=== PATIENT | female | born 1990 | race Caucasian/White ===

== ENCOUNTER 2016-07-13 16:52 | Emergency (ER) | payer SELFPAY ==
[~2016-07-13] VITALS: Ht 170.2 cm; Wt 72.0 kg
[~2016-07-13 16:52] MED LIST: CEFT250T8 PO
[2016-07-13 18:39] VITALS: BP 121/66; PULSE 86; RESP 18; TEMP 98.1; O2SAT 98
[2016-07-13 18:54] VITALS: RESP 18; O2SAT 98
[2016-07-13 18:58] VITALS: BP_SYST 121; BP_SYST 130; BP_DIAS 66; BP_DIAS 71; PULSE 82; RESP 17; O2SAT 99
--- NOTE | 2016-07-13 18:58 | PD ---
HPI Chief Complaint: Chest Pain Time Seen by Provider: 18:42 Travel History International Travel<30 days: No Contact w/Intl Traveler<30days: No Traveled to known affect area: No History of Present Illness HPI This a 25-year-old female with a history of IVD drug abuse, who presents here under custody with complaints of chest pain and general malaise. Patient also reports she's had a temperature of 104 at home. The patient states that she's had general malaise for over a year however last couple months she's felt worse. She denies any chills. She states that she last shot up yesterday in her neck. She states she sat up with opiates and methamphetamine. When asked about her chest pain, the patient states that its worse with inspiration and expiration. She states that she feels as though she has congestive heart failure. I asked her why she thought she had congestive heart failure and she could not give a true answer to validate. She denies being . There are no other complaints time of my examination. PFSH Past Medical History Arthritis: No Asthma: Yes Autoimmune Disease: No Blood Disorders: No Bipolar Disorder: Yes Depression: Yes Heart Rhythm Problems: Yes Cancer: No Cardiovascular Problems: Yes (ENDOCARDITIS) High Cholesterol: No Chemotherapy: No Chest Pain: Yes Congestive Heart Failure: No COPD: No Cerebrovascular Accident: Yes Diabetes: No Diminished Hearing: No Endocrine: No Gastrointestinal Disorders: Yes GERD: No Genitourinary: No Headaches: Yes Hepatitis: No Hiatal Hernia: No Hypertension: No Immune Disorder: No Kidney Stones: No Musculoskeletal: No Neurologic: No Psychiatric: Yes Reproductive: No Respiratory: Yes Immunizations Current: No Migraines: Yes Myocardial Infarction: No Radiation Therapy: No Renal Failure: No Seizures: No Sickle Cell Disease: No Sleep Apnea: No Thyroid Disease: No Ulcer: No Tetanus Vaccination: > 5 Years Influenza Vaccination: No ?: Not LMP: 07/10/16 : 2 Para: 2 Miscarriage: 0 : 0 Past Surgical History Abdominal Surgery: Yes (appendectomy) AICD: No Appendectomy: Yes Arteriovenous Shunt: No Cardiac Surgery: No Section: Yes Cholecystectomy: No Ear Surgery: No Endocrine Surgery: No Eye Surgery: No Genitourinary Surgery: No Gynecologic Surgery: No Hysterectomy: Yes Insulin Pump: No Joint Replacement: No Oral Surgery: No Pacemaker: No Thoracic Surgery: No Other Surgery: Yes Social History Alcohol Use: Yes (OCASSIONALLY) Tobacco Use: Yes (1/2 ppd) Substance Use: Yes (meth and dilaudid IV) Allergies-Medications (Allergen,Severity, Reaction): Coded Allergies: No Known Allergies (Verified , 07/13/16) Reported Meds & Prescriptions Reported Meds & Active Scripts Active No Active Prescriptions or Reported Medications Review of Systems Except as stated in HPI: all other systems reviewed are Neg General / Constitutional: Positive: Fever HENT: No: Headaches, Lightheadedness, Neck Stiffness, Neck Pain Cardiovascular: Positive: Chest Pain or Discomfort (neuritic), No: Palpitations, Irregular Rhythm Respiratory: Positive: Cough (productive with with brown-yellow phlegm.), Shortness of Breath, No: Wheezing Gastrointestinal: No: Nausea, Vomiting, Abdominal Pain Musculoskeletal: Positive: Myalgias (generalized body aches), Pain (denies joint pain), No: Weakness Neurologic: No: Weakness (Gen.), Headache, Change in Mentation, Sensory Disturbance Physical Exam Narrative GENERAL: Well-developed well-nourished female in no acute respiratory distress. SKIN: Warm and dry. HEAD: Atraumatic. Normocephalic. EYES: No scleral icterus. No injection or drainage. ENT: Mucous membranes pink and moist. NECK: Trachea midline. No JVD. Supple CARDIOVASCULAR: Regular rate and rhythm. No murmur appreciated. RESPIRATORY: No accessory muscle use. Clear to auscultation. Breath sounds equal bilaterally. GASTROINTESTINAL: Abdomen soft, non-tender, nondistended. MUSCULOSKELETAL: No obvious deformities. No clubbing. No cyanosis. No edema. NEUROLOGICAL: Awake and alert. No obvious cranial nerve deficits. Motor grossly within normal limits. Normal speech. PSYCHIATRIC: Appropriate mood and affect; insight and judgment normal. Data Data Last Documented VS Vital Signs Date Time Temp Pulse Resp B/P Pulse Ox O2 Delivery O2 Flow Rate FiO2 07/13/16 18:58 82 17 121/66 99 Room Air 130/71 07/13/16 18:39 98.1 Orders Electrocardiogram (07/13/16 ) Basic Metabolic Panel (Bmp) (07/13/16 18:49) Ckmb (Isoenzyme) Profile (07/13/16 18:49) Complete Blood Count With Diff (07/13/16 18:49) Magnesium (Mg) (07/13/16 18:49) Prothrombin Time / Inr (Pt) (07/13/16 18:49) Act Partial Throm Time (Ptt) (07/13/16 18:49) Troponin I (07/13/16 18:49) Ecg Monitoring (07/13/16 18:49) Bilateral Bp Monitoring (07/13/16 18:49) Iv Access Insert/Monitor (07/13/16 18:49) Oximetry (07/13/16 18:49) Oxygen Administration (07/13/16 18:49) Sodium Chloride 0.9% Flush (Ns Flush) (07/13/16 19:00) Chest, Pa & Lat (07/13/16 18:49) Blood Culture (07/13/16 18:49) Ed Urine Pregnancytest Poc (07/13/16 18:49) Westergren Sedimentation Rate (07/13/16 18:51) MDM Medical Decision Making Medical Screen Exam Complete: Yes Emergency Medical Condition: Yes Differential Diagnosis Atypical noncardiac chest pain versus pleurisy versus pneumonia versus ACS versus endocarditis Narrative Course 25 year old female with history of IVD drug abuse, presents today in custody with complaints of chest pain. The patient also reported subjective fever. Patient is afebrile here. I'll signs are all within normal limits. EKG shows sinus rhythm with a rate of [address] elevations or depressions. Cardiac workup has been ordered including blood cultures and sedimentation rate. She'll be signed out to Dr. Carolina Ann, physician replacing a and disposition will be per her. Diagnosis Primary Impression: Chest pain Additional Impression: Drug abuse Scripts No Active Prescriptions or Reported Meds Ivan Rasmussen MD Jul 13, 2016 18:58
[2016-07-13 19:00] VITALS: BP 122/65; PULSE 79; RESP 16; O2SAT 98
[2016-07-13] MEDS ORDERED: SODIUM CHLORIDE 0.9% FLUSH 10 ML FLUSH IVF PRN (19:00)
[2016-07-13 19:24] LABS: AUTOMATED NEUTROPHIL # 3.7 TH/MM3 (1.8-7.7); BASOPHIL % 0.4 % (0.0-2.0); EOSINOPHIL # 0.1 TH/MM3 (0-0.4); HEMATOCRIT 35.2 % (35.0-46.0); HEMO FLAGS DIFF FINAL; LYMPH % 26.8 % (9.0-44.0); LYMPHOCYTE # 1.7 TH/MM3 (1.0-4.8); MEAN CELL VOLUME 82.8 FL (80.0-100.0); MEAN CORPUSCULAR HGB CONC 33.8 % (32.0-36.0); MONO % 10.5 % (0.0-8.0); NEUT % 60.3 % (16.0-70.0); PLATELET COUNT 268 TH/MM3 (150-450); RED BLOOD COUNT 4.25 MIL/MM3 (4.00-5.30); RED CELL DISTRIBUTION WIDTH 15.1 % (11.6-17.2); WHITE BLOOD COUNT 6.2 TH/MM3 (4.0-11.0)
[2016-07-13 19:37] LABS: ANION GAP 7 MEQ/L (5-15); BICARBONATE 27.4 MEQ/L (21.0-32.0); BLOOD UREA NITROGEN 6 MG/DL (7-18); CHLORIDE 105 MEQ/L (98-107); GLOMERULAR FILTRATION RATE 90 ML/MIN (>89); MAGNESIUM 2.3 MG/DL (1.5-2.5); POTASSIUM 3.4 MEQ/L (3.5-5.1); SODIUM (NA) 139 MEQ/L (136-145)
[2016-07-13 19:43] LABS: CREATINE KINASE 30 U/L (26-192)
--- NOTE | 2016-07-13 20:28 | RADRPT ---
EXAM DATE/TIME: 07/13/2016 19:08 [facility] COMPARISON: CHEST SINGLE AP, April 03, 2016, 9:25. INDICATIONS : Chest pain. MEDICAL HISTORY : leukocytosis SURGICAL HISTORY : None. ENCOUNTER: Initial ACUITY: 1 day PAIN SCORE: 4/10 LOCATION: Bilateral chest FINDINGS: The lungs are clear without infiltrate, nodule, or mass. There is no appreciable pleural effusion fo r technique. Heart and mediastinum are unremarkable. CONCLUSION: No acute cardiopulmonary disease. Bryan Kennedy MD on July 13, 2016 at 20:25 Board Certified Radiologist. This report was verified electronically.
--- NOTE | 2016-07-13 20:59 | PD ---
Physical Exam Narrative General: The patient is a well-developed well-nourished female in no acute distress. She refuses to talk to me. Head and Neck exam: Head is normocephalic atraumatic. Eyes: Pupils are equal round and reactive to light. Nose: Midline septum with pink mucous membranes Mouth: The patient refuses to open her mouth for examination. Neck: No palpable lymphadenopathy. No nuchal rigidity. No thyromegaly. Cardiovascular: Regular rate and rhythm without murmurs, gallops, or rubs. No pulse deficit to the extremities on simultaneous auscultation and palpation of her radial artery. Lungs: Clear to auscultation bilaterally. No wheezes, rhonchi, or rales. Abdomen: Soft, without tenderness to palpation in all 4 quadrants of the abdomen. No guarding, rebound, or rigidity. Normal bowel sounds are audible. No tenderness on palpation of McBurney's point. Extremities: No clubbing, cyanosis, or edema. 2+ pulses in all 4 extremities. No calf tenderness on palpation. Back: No spinous process tenderness to palpation. No costovertebral angle tenderness to palpation. Neurologic Exam: The patient refuses to cooperate for formal neurologic testing, however the patient has no evidence of facial asymmetry. The patient has strength that is 5 over 5 in all 4 extremities and is moving all extremities equally. The patient has intact sensation of her extremities. Skin Exam: No rash noted. Intact skin that is warm and dry. Data Data Last Documented VS Vital Signs Date Time Temp Pulse Resp B/P Pulse Ox O2 Delivery O2 Flow Rate FiO2 07/13/16 19:00 79 16 122/65 98 Room Air 07/13/16 18:39 98.1 Orders Electrocardiogram (07/13/16 ) Basic Metabolic Panel (Bmp) (07/13/16 18:49) Ckmb (Isoenzyme) Profile (07/13/16 18:49) Complete Blood Count With Diff (07/13/16 18:49) Magnesium (Mg) (07/13/16 18:49) Prothrombin Time / Inr (Pt) (07/13/16 18:49) Act Partial Throm Time (Ptt) (07/13/16 18:49) Troponin I (07/13/16 18:49) Ecg Monitoring (07/13/16 18:49) Bilateral Bp Monitoring (07/13/16 18:49) Iv Access Insert/Monitor (07/13/16 18:49) Oximetry (07/13/16 18:49) Oxygen Administration (07/13/16 18:49) Sodium Chloride 0.9% Flush (Ns Flush) (07/13/16 19:00) Chest, Pa & Lat (07/13/16 18:49) Blood Culture (07/13/16 18:49) Ed Urine Pregnancytest Poc (07/13/16 18:49) Westergren Sedimentation Rate (07/13/16 18:51) Labs Laboratory Tests Test 07/13/16 18:50 White Blood Count 6.2 TH/MM3 Red Blood Count 4.25 MIL/MM3 Hemoglobin 11.9 GM/DL Hematocrit 35.2 % Mean Corpuscular Volume 82.8 FL Mean Corpuscular Hemoglobin 28.0 PG Mean Corpuscular Hemoglobin 33.8 % Concent Red Cell Distribution Width 15.1 % Platelet Count 268 TH/MM3 Mean Platelet Volume 7.7 FL Neutrophils (%) (Auto) 60.3 % Lymphocytes (%) (Auto) 26.8 % Monocytes (%) (Auto) 10.5 % Eosinophils (%) (Auto) 2.0 % Basophils (%) (Auto) 0.4 % Neutrophils # (Auto) 3.7 TH/MM3 Lymphocytes # (Auto) 1.7 TH/MM3 Monocytes # (Auto) 0.6 TH/MM3 Eosinophils # (Auto) 0.1 TH/MM3 Basophils # (Auto) 0.0 TH/MM3 CBC Comment DIFF FINAL Differential Comment Erythrocyte Sedimentation Rate 42 mm/hr Prothrombin Time 11.0 SEC Prothromb Time International 1.0 RATIO Ratio Activated Partial 31.0 SEC Thromboplast Time Sodium Level 139 MEQ/L Potassium Level 3.4 MEQ/L Chloride Level 105 MEQ/L Carbon Dioxide Level 27.4 MEQ/L Anion Gap 7 MEQ/L Blood Urea Nitrogen 6 MG/DL Creatinine 0.78 MG/DL Estimat Glomerular Filtration 90 ML/MIN Rate Random Glucose 88 MG/DL Calcium Level 8.6 MG/DL Magnesium Level 2.3 MG/DL Total Creatine Kinase 30 U/L Troponin I LESS THAN 0.02 NG/ML [facility] Medical Record Reviewed: Yes Supervised Visit with KIM: No Interpretation(s) Last Impressions Chest X-Ray 07/13/16 4786 Signed Impressions: Service Date/Time: Wednesday, July 13, 2016 19:08 - CONCLUSION: No acute cardiopulmonary disease. Bryan Kennedy MD Narrative Course During the course of the patients emergency department visit, the patients history, examination, and differential diagnosis were reviewed with the patient. The patient had IV access obtained and blood work sent for analysis. The patient was checked out to me by Dr. Rasmussen requested that I review the patient's laboratory studies and disposition the patient. The patient was brought in by the police after being placed under arrest. The patient reported to him that she's been having 2 months of intermittent chest pain. She does have a history of IV drug use. The patient on arrival is afebrile with normal vital signs. The patients laboratory studies were reviewed and remarkable for a white count of 6.2, hemoglobin 11.9, platelets 268 with 10.5 monocytes. Sedimentation rate is slightly elevated at 42. [facility] medical record reveals that the patient in March had a slightly elevated sedimentation rate and complaints of chest pain at that time. She was admitted to the hospital, however she unfortunately signed out AGAINST MEDICAL ADVICE. Blood cultures were done at that time and found to be negative 2. Blood cultures 2 have been drawn at this time. Basic metabolic profile is remarkable for potassium of 3.4, BUN 6, CPK 30, troponin I less than 0.02, magnesium 2.3. Radiology studies were reviewed and remarkable for a chest x-ray that showed no evidence of acute infiltrate or any cardiopulmonary disease. The patient is currently under arrest and police custody. The officer at the bedside reports that the patient will be going to residential and does not have onset on one of her several charges, therefore she suspect that she will be in the residential for a few days. As the patient is currently in custody, she will have a safe place to call to have her come back immediately if she does have a blood culture that comes back positive, however based on the rest of the patient's evaluation, and examination I suspect that her cultures will be negative. She was instructed regarding the ill effects of IV drug use and the importance of quitting. The patient is resting comfortably and feels better, is alert and in no distress. The patients results and examination findings were discussed with the patient. The repeat examination is unremarkable and benign. The history, exam, diagnostic testing, and current condition do not suggest any significant pathology to warrant further testing, continued ED treatment, admission, or surgical evaluation at this point. The vital signs have been stable. The patient does not have uncontrollable pain, intractable vomiting, or other significant symptoms. The patient's condition is stable and appropriate for discharge. The patient will be discharged into police custody. Diagnosis Primary Impression: Chest pain Qualified Code: R07.9 - Chest pain, unspecified type Additional Impression: Drug abuse Referrals: Primary Care Physician 2 days Patient Instructions: Chest Pain (ED), General Instructions Med/Other Pt SpecificInfo: No Meds Exist/No RX given Scripts No Active Prescriptions or Reported Meds Disposition: [address] LAW ENFORCEMNT Condition: Stable Carolina Ann MD Jul 13, 2016 20:59
[2016-07-13 21:09] VITALS: BP 122/76
--- NOTE | 2016-07-14 10:02 | EKG ---
Date Performed: 07/13/2016 Time Performed: 18:47:26 PTAGE: 25 years EKG: Sinus rhythm WITH SHORT [place] INTERVAL BORDERLINE ECG PREVIOUS TRACING : 04/03/2016 16.12 DOCTOR: Emre Cobian Interpretating Date/Time 07/14/2016 10:01:11
== END 2016-07-13 21:37 ==
LOC: NEPE 16:52
DX: R07.9 Chest pain, unspecified (principal); J45.909 Unspecified asthma, uncomplicated; I50.9 Heart failure, unspecified; Z86.73 Personal history of transient ischemic attack (TIA), and cerebral infarction without residual deficits; F17.210 Nicotine dependence, cigarettes, uncomplicated; R94.31 Abnormal electrocardiogram [ECG] [EKG]; R53.81 Other malaise; F15.10 Other stimulant abuse, uncomplicated; F19.10 Other psychoactive substance abuse, uncomplicated; M79.1 Myalgia
CPT/HCPCS: 71020; 80048; 82550; 83735; 84484; 84703; 85025; 85610; 85652; 85730; 87040; 93005

== ENCOUNTER 2016-10-27 13:06 | Emergency (ER) | payer SELFPAY ==
[~2016-10-27] VITALS: Ht 170.2 cm; Wt 92.1 kg
[2016-10-27 13:10] VITALS: BP 128/84; PULSE 108; RESP 16; TEMP 98.6; O2SAT 98
[2016-10-27] MEDS ORDERED: SODIUM CHLOR 0.9% 1000 ML INJ 1,000 ML IV ONE (13:23)
[2016-10-27] MEDS ORDERED: PROCHLORPERAZINE INJ 10 MG/2 ML VIAL IVP ONE (13:30)
[2016-10-27] MEDS ORDERED: SODIUM CHLORIDE 0.9% FLUSH 10 ML FLUSH IVF PRN (13:30)
[2016-10-27] MEDS ORDERED: diphenhydrAMINE HCL 50 MG/ML VIAL IVP ONE (13:30)
--- NOTE | 2016-10-27 13:31 | PD ---
HPI Chief Complaint: Headache Time Seen by Provider: 13:20 Travel History International Travel<30 days: No Contact w/Intl Traveler<30days: No Traveled to known affect area: No History of Present Illness HPI 26 y/o female presents with 3 week history of intermittent frontal headaches with associated intermittent diffuse muscle cramping. She denies any trauma. She denies other concurrent complaints. She states the headaches will go away and she is able to rest at night. She states she has been clean from IV drug abuse for 5 months and is currently on probation where she cannot receive any narcotics. She states her last menstrual cycle was 2 months ago but it has only is been irregular since her drug use. She denies taking a test. She denies specific modifying factors. Quality is throbbing. Severity is moderate. PFSH Past Medical History Arthritis: No Asthma: Yes Autoimmune Disease: No Blood Disorders: No Bipolar Disorder: Yes Depression: Yes Heart Rhythm Problems: Yes Cancer: No Cardiovascular Problems: Yes (ENDOCARDITIS) High Cholesterol: No Chemotherapy: No Chest Pain: Yes Congestive Heart Failure: No COPD: No Cerebrovascular Accident: Yes Diabetes: No Diminished Hearing: No Endocrine: No Gastrointestinal Disorders: Yes GERD: No Genitourinary: No Headaches: Yes Hepatitis: No Hiatal Hernia: No Hypertension: No Immune Disorder: No Kidney Stones: No Musculoskeletal: No Neurologic: No Psychiatric: Yes Reproductive: No Respiratory: Yes Immunizations Current: No Migraines: Yes Myocardial Infarction: No Radiation Therapy: No Renal Failure: No Seizures: No Sickle Cell Disease: No Sleep Apnea: No Thyroid Disease: No Ulcer: No ?: Not LMP: 2 MONTHS/IRREG : 2 Para: 2 Miscarriage: 0 : 0 Past Surgical History Abdominal Surgery: Yes (appendectomy) AICD: No Appendectomy: Yes Arteriovenous Shunt: No Cardiac Surgery: No Section: Yes Cholecystectomy: No Ear Surgery: No Endocrine Surgery: No Eye Surgery: No Genitourinary Surgery: No Gynecologic Surgery: No Hysterectomy: Yes Insulin Pump: No Joint Replacement: No Oral Surgery: No Pacemaker: No Thoracic Surgery: No Other Surgery: Yes Social History Alcohol Use: Yes (OCASSIONALLY) Tobacco Use: Yes (1/2 ppd) Substance Use: Yes (meth and dilaudid IV) Allergies-Medications (Allergen,Severity, Reaction): Uncoded Allergies: NO NARCOTICS (Adverse Reaction, Unknown, 10/27/16) PER PT REQUEST Reported Meds & Prescriptions Reported Meds & Active Scripts Active No Active Prescriptions or Reported Medications Review of Systems Except as stated in HPI: all other systems reviewed are Neg Physical Exam Narrative GENERAL: Well-nourished, well-developed patient. well appearing SKIN: Warm and dry. HEAD: Normocephalic and atraumatic. EYES: No injection or drainage. ENT: No nasal drainage noted. NECK: Supple, trachea midline. No meningeal signs CARDIOVASCULAR: Regular rate and rhythm RESPIRATORY: Breath sounds equal bilaterally. No accessory muscle use. GASTROINTESTINAL: Abdomen soft, non-tender, nondistended. EXTREMITIES: No edema. NEUROLOGICAL: Awake and alert. Motor and sensory grossly within normal limits. Normal speech. 5 out of 5 in all 4 extremities Data Data Last Documented VS Vital Signs Date Time Temp Pulse Resp B/P Pulse Ox O2 Delivery O2 Flow Rate FiO2 10/27/16 14:54 77 16 128/64 98 Room Air 10/27/16 13:10 98.6 Orders Complete Blood Count With Diff (10/27/16 13:23) Basic Metabolic Panel (Bmp) (10/27/16 13:23) Ecg Monitoring (10/27/16 13:23) Iv Access Insert/Monitor (10/27/16 13:23) Oximetry (10/27/16 13:23) Sodium Chloride 0.9% Flush (Ns Flush) (10/27/16 13:30) Prochlorperazine Inj (Compazine Inj) (10/27/16 13:30) Diphenhydramine Inj (Benadryl Inj) (10/27/16 13:30) Sodium Chlor 0.9% 1000 Ml Inj (Ns 1000 M (10/27/16 13:23) Ed Urine Pregnancytest Poc (10/27/16 13:23) Ct Brain W/O Iv Contrast(Rout) (10/27/16 ) Acetaminophen (Tylenol) (10/27/16 14:45) Labs Laboratory Tests Test 10/27/16 13:50 White Blood Count 8.6 TH/MM3 Red Blood Count 4.37 MIL/MM3 Hemoglobin 12.9 GM/DL Hematocrit 37.5 % Mean Corpuscular Volume 85.8 FL Mean Corpuscular Hemoglobin 29.4 PG Mean Corpuscular Hemoglobin 34.3 % Concent Red Cell Distribution Width 13.2 % Platelet Count 229 TH/MM3 Mean Platelet Volume 7.6 FL Neutrophils (%) (Auto) 63.3 % Lymphocytes (%) (Auto) 23.6 % Monocytes (%) (Auto) 9.3 % Eosinophils (%) (Auto) 0.7 % Basophils (%) (Auto) 3.1 % Neutrophils # (Auto) 5.4 TH/MM3 Lymphocytes # (Auto) 2.0 TH/MM3 Monocytes # (Auto) 0.8 TH/MM3 Eosinophils # (Auto) 0.1 TH/MM3 Basophils # (Auto) 0.3 TH/MM3 CBC Comment DIFF FINAL Differential Comment Sodium Level 141 MEQ/L Potassium Level 3.5 MEQ/L Chloride Level 107 MEQ/L Carbon Dioxide Level 25.8 MEQ/L Anion Gap 8 MEQ/L Blood Urea Nitrogen 10 MG/DL Creatinine 0.66 MG/DL Estimat Glomerular Filtration 108 ML/MIN Rate Random Glucose 87 MG/DL Calcium Level 8.5 MG/DL MDM Medical Decision Making Medical Screen Exam Complete: Yes Emergency Medical Condition: Yes Medical Record Reviewed: Yes (past history confirmed) Interpretation(s) CBC & BMP Diagram 10/27/16 13:50 ct head no acute Differential Diagnosis Tension, migraine, cluster, , electrolyte abnormality Narrative Course Will check blood work, test and dose with Compazine and Benadryl and IV fluids and reevaluate ed workup no acute, patient declined compazine and benadryl, will dose with tylenol Patient denies any new complaints and states that they are feeling better. Patient happy with care, all questions answered. Patient knows that follow up is incumbent on them and to return to the emergency room immediately if new or worsening symptoms develop. Patient given strict return precautions, vitals reviewed and are normal, agrees to further workup as an outpatient. Diagnosis Primary Impression: Cephalalgia Qualified Code: R51 - Nonintractable episodic headache, unspecified headache type Patient Instructions: General Instructions Additional Instructions: return as needed, tylenol as needed, follow with primary Med/Other Pt SpecificInfo: No Change to Meds Scripts No Active Prescriptions or Reported Meds Disposition: 01 DISCHARGE HOME Condition: Stable Clemencia Chaparro MD Oct 27, 2016 13:31 Condition: Stable Clemencia Chaparro MD Oct 27, 2016 13:31
[2016-10-27 13:39] VITALS: O2SAT 98
[2016-10-27 13:55] LABS: AUTOMATED NEUTROPHIL # 5.4 TH/MM3 (1.8-7.7); BASOPHIL # 0.3 TH/MM3 (0-0.2); BASOPHIL % 3.1 % (0.0-2.0); EOSINOPHIL # 0.1 TH/MM3 (0-0.4); EOSINOPHIL % 0.7 % (0.0-4.0); HEMATOCRIT 37.5 % (35.0-46.0); HEMO FLAGS DIFF FINAL; LYMPH % 23.6 % (9.0-44.0); MEAN CELL VOLUME 85.8 FL (80.0-100.0); MEAN CORPUSCULAR HEMOGLOBIN 29.4 PG (27.0-34.0); MEAN CORPUSCULAR HGB CONC 34.3 % (32.0-36.0); MONO % 9.3 % (0.0-8.0); NEUT % 63.3 % (16.0-70.0); PLATELET COUNT 229 TH/MM3 (150-450); RED BLOOD COUNT 4.37 MIL/MM3 (4.00-5.30); RED CELL DISTRIBUTION WIDTH 13.2 % (11.6-17.2); WHITE BLOOD COUNT 8.6 TH/MM3 (4.0-11.0)
[2016-10-27 14:05] LABS: POTASSIUM 3.5 MEQ/L (3.5-5.1)
[2016-10-27 14:09] LABS: BICARBONATE 25.8 MEQ/L (21.0-32.0)
--- NOTE | 2016-10-27 14:41 | RADRPT ---
EXAM DATE/TIME: 10/27/2016 14:17 [facility] COMPARISON: CT BRAIN W/O CONTRAST, April 27, 2015, 2:29. INDICATIONS : Cephalgia x 3 weeks, worse over past 2 days. RADIATION DOSE: 65.81 CTDIvol (mGy) MEDICAL HISTORY : Migraines. SURGICAL HISTORY : Appendectomy. ENCOUNTER: Initial ACUITY: 3 weeks PAIN SCALE: 10/10 LOCATION: cranial TECHNIQUE: Multiple contiguous axial images were obtained of the head. Using automated exposure control and adj ustment of the mA and/or kV according to patient size, radiation dose was kept as low as reasonably a chievable to obtain optimal diagnostic quality images. DICOM format image data is available electro nically for review and comparison. FINDINGS: CEREBRUM: The ventricles are normal for age. No evidence of midline shift, mass lesion, hemorrhage or acute in farction. No extra-axial fluid collections are seen. POSTERIOR FOSSA: The cerebellum and brainstem are intact. The 4th ventricle is midline. The cerebellopontine angle i s unremarkable. EXTRACRANIAL: The visualized portion of the orbits is intact. SKULL: The calvaria is intact. No evidence of skull fracture. CONCLUSION: Normal examination for a patient of this age. No significant change has occurred. Gildardo Rowley MD on October 27, 2016 at 14:38 Board Certified Radiologist. This report was verified electronically.
[2016-10-27] MEDS ORDERED: ACETAMINOPHEN 325 MG TAB PO ONE (14:45)
[2016-10-27 14:54] VITALS: BP 128/64; PULSE 77; RESP 16; O2SAT 98
== END 2016-10-27 14:58 | disposition home or self-care (01) ==
LOC: PHED 13:06
DX: R51 Headache (principal); R25.2 Cramp and spasm; F17.200 Nicotine dependence, unspecified, uncomplicated; Z87.09 Personal history of other diseases of the respiratory system; Z86.59 Personal history of other mental and behavioral disorders; Z86.79 Personal history of other diseases of the circulatory system; Z87.19 Personal history of other diseases of the digestive system
CPT/HCPCS: 70450; 80048; 84703; 85025; 96360; 99285; J7030

== ENCOUNTER 2017-09-12 16:15 | Inpatient (IN) | payer SELFPAY ==
[~2017-09-12] VITALS: Ht 170.2 cm; Wt 100.0 kg
[2017-09-12 16:51] VITALS: BP 173/74; PULSE 105; RESP 20; TEMP 102; O2SAT 97
[2017-09-12] MEDS ORDERED: ACETAMINOPHEN 500 MG CPLT PO ONE (17:15)
[2017-09-12] MEDS ORDERED: IBUPROFEN 600 MG TAB PO ONE (17:15)
[2017-09-12 17:19] VITALS: BP 110/61; PULSE 95; RESP 18; TEMP 100; O2SAT 96; O2SAT 97
--- NOTE | 2017-09-12 17:19 | PD ---
HPI Chief Complaint: Fever Time Seen by Provider: 16:57 Travel History International Travel<30 days: No Contact w/Intl Traveler<30days: No Traveled to known affect area: No History of Present Illness HPI The patient was seen and examined in the presence of the nurse. She complains of fever. Duration 3 days. Severity is moderate. She has history of IV drug abuse but reports that she has been clean for 10 months. She has had endocarditis twice. No valve replacements. She says it was recommended at one point but she refused. She denies having vomiting or diarrhea or sore throat or runny nose or cough or shortness of breath or pelvic pain or vaginal discharge. No urinary complaints. No alleviating factors. No exacerbating factors. PFSH Past Medical History Arthritis: No Asthma: Yes Autoimmune Disease: No Blood Disorders: No Bipolar Disorder: Yes Depression: Yes Heart Rhythm Problems: Yes Cancer: No Cardiovascular Problems: Yes (ENDOCARDITIS) High Cholesterol: No Chemotherapy: No Chest Pain: Yes Congestive Heart Failure: No COPD: No Cerebrovascular Accident: Yes Diabetes: No Diminished Hearing: No Endocrine: No Gastrointestinal Disorders: Yes GERD: No Genitourinary: No Headaches: Yes Hepatitis: No Hiatal Hernia: No Hypertension: No Immune Disorder: No Kidney Stones: No Musculoskeletal: No Neurologic: No Psychiatric: Yes Reproductive: No Respiratory: Yes Immunizations Current: No Migraines: Yes Myocardial Infarction: No Radiation Therapy: No Renal Failure: No Seizures: No Sickle Cell Disease: No Sleep Apnea: No Thyroid Disease: No Ulcer: No ?: Not : 2 Para: 2 Miscarriage: 0 : 0 Past Surgical History Abdominal Surgery: Yes (appendectomy) AICD: No Appendectomy: Yes Arteriovenous Shunt: No Cardiac Surgery: No Section: Yes Cholecystectomy: No Ear Surgery: No Endocrine Surgery: No Eye Surgery: No Genitourinary Surgery: No Gynecologic Surgery: No Hysterectomy: Yes Insulin Pump: No Joint Replacement: No Oral Surgery: No Pacemaker: No Thoracic Surgery: No Other Surgery: Yes Social History Alcohol Use: Yes (denies) Tobacco Use: Yes (1/2 ppd) Substance Use: Yes (hx of meth and dilaudid IV) Allergies-Medications (Allergen,Severity, Reaction): Uncoded Allergies: NO NARCOTICS (Adverse Reaction, Unknown, 10/27/16) PER PT REQUEST Reported Meds & Prescriptions Reported Meds & Active Scripts Active Reported Lexapro (Escitalopram Oxalate) 20 Mg Tab 40 Mg PO DAILY Trazodone (Trazodone HCl) 150 Mg Tablet 150 Mg PO HS Lamictal (Lamotrigine) 25 Mg Tab 25 Mg PO BID Review of Systems General / Constitutional: Positive: Fever, Chills Eyes: No: Visual changes HENT: No: Headaches Cardiovascular: No: Chest Pain or Discomfort Respiratory: No: Shortness of Breath Gastrointestinal: No: Abdominal Pain Genitourinary: No: Dysuria Musculoskeletal: No: Pain Skin: No Rash Neurologic: No: Weakness Psychiatric: Positive: Substance Abuse, No: Depression Endocrine: No: Polydipsia Hematologic/Lymphatic: No: Easy Bruising Physical Exam Narrative GENERAL: Well-nourished, well-developed patient with fever . SKIN: Focused skin assessment reveals no rash and nodules. Skin is Warm and dry. No skin abscess HEAD: Atraumatic. Normocephalic. EYES: Pupils equal and round. No scleral icterus. No injection or drainage. ENT: No nasal bleeding or discharge. Mucous membranes pink and moist. Throat clear NECK: Trachea midline. No JVD. No meningeal signs CARDIOVASCULAR: Regular rate and rhythm. Mild systolic murmur appreciated. RESPIRATORY: No accessory muscle use. Clear to auscultation. Breath sounds equal bilaterally. GASTROINTESTINAL: Abdomen soft, non-tender, nondistended. Hepatic and splenic margins not palpable. MUSCULOSKELETAL: No obvious deformities. No clubbing. No cyanosis. No edema. No midline tenderness of the spine NEUROLOGICAL: Awake and alert. No obvious cranial nerve deficits. Motor grossly within normal limits. Normal speech. PSYCHIATRIC: Appropriate mood and affect; insight and judgment normal. Data Data Last Documented VS Vital Signs Date Time Temp Pulse Resp B/P (MAP) Pulse Ox O2 Delivery O2 Flow Rate FiO2 09/12/17 18:11 99.4 09/12/17 17:19 95 18 97 Room Air Orders Orders Complete Blood Count With Diff (09/12/17 17:08) Comprehensive Metabolic Panel (09/12/17 17:08) Lactic Acid Sepsis Protocol (09/12/17 17:08) Urinalysis - C+S If Indicated (09/12/17 17:08) Blood Culture (09/12/17 17:08) Chest, Single Ap (09/12/17 17:08) Ecg Monitoring (09/12/17 17:08) Iv Access Insert/Monitor (09/12/17 17:08) Oximetry (09/12/17 17:08) Ibuprofen (Motrin) (09/12/17 17:15) Acetaminophen (Tylenol) (09/12/17 17:15) Ed Urine Pregnancytest Poc (09/12/17 17:08) Urine Culture (09/12/17 17:17) Labs Laboratory Tests Test 09/12/17 17:17 White Blood Count 10.4 TH/MM3 Red Blood Count 4.08 MIL/MM3 Hemoglobin 12.5 GM/DL Hematocrit 36.4 % Mean Corpuscular Volume 89.1 FL Mean Corpuscular Hemoglobin 30.5 PG Mean Corpuscular Hemoglobin Concent 34.2 % Red Cell Distribution Width 13.3 % Platelet Count 209 TH/MM3 Mean Platelet Volume 7.9 FL Neutrophils (%) (Auto) 75.5 % Lymphocytes (%) (Auto) 11.8 % Monocytes (%) (Auto) 11.5 % Eosinophils (%) (Auto) 0.8 % Basophils (%) (Auto) 0.4 % Neutrophils # (Auto) 7.9 TH/MM3 Lymphocytes # (Auto) 1.2 TH/MM3 Monocytes # (Auto) 1.2 TH/MM3 Eosinophils # (Auto) 0.1 TH/MM3 Basophils # (Auto) 0.0 TH/MM3 CBC Comment DIFF FINAL Differential Comment Urine Color YELLOW Urine Turbidity HAZY Urine pH 6.0 Urine Specific [place] 1.019 Urine Protein TRACE mg/dL Urine Glucose (UA) NEG mg/dL Urine Ketones NEG mg/dL Urine Occult Blood SMALL Urine Nitrite NEG Urine Bilirubin NEG Urine Urobilinogen 0.2 MG/DL Urine Leukocyte Esterase TRACE Urine RBC 5 /hpf Urine WBC 17 /hpf Urine Squamous Epithelial Cells <1 /hpf Urine Mucus FEW /lpf Microscopic Urinalysis Comment CATH-CULTURE IND Blood Urea Nitrogen 11 MG/DL Creatinine 0.84 MG/DL Random Glucose 107 MG/DL Total Protein 7.2 GM/DL Albumin 3.1 GM/DL Calcium Level 8.4 MG/DL Alkaline Phosphatase 56 U/L Aspartate Amino Transf (AST/SGOT) 16 U/L Alanine Aminotransferase (ALT/SGPT) 18 U/L Total Bilirubin 0.6 MG/DL Sodium Level 138 MEQ/L Potassium Level 3.9 MEQ/L Chloride Level 106 MEQ/L Carbon Dioxide Level 24.2 MEQ/L Anion Gap 8 MEQ/L Estimat Glomerular Filtration Rate 82 ML/MIN Lactic Acid Level 0.9 mmol/L MDM Medical Decision Making Medical Screen Exam Complete: Yes Emergency Medical Condition: Yes Medical Record Reviewed: Yes Differential Diagnosis Bacteremia, endocarditis, sepsis, pneumonia Narrative Course I have reviewed the patient's electronic medical record. IV placed and 2 sets of blood cultures obtained I gave her Motrin for the fever She had just taken Tylenol prior to arrival CBC and metabolic profiles are normal Urine is clean She has no respiratory or GI symptoms. No meningeal findings. No skin findings to suggest why she has fever. I have to consider endocarditis given her history of having it twice. She does have a mild systolic murmur She will be admitted for IV antibiotics and following blood cultures and consideration of echocardiogram I reviewed with hospitalist Diagnosis Primary Impression: Fever Qualified Codes: R50.9 - Fever, unspecified Additional Impressions: History of intravenous drug abuse History of acute bacterial endocarditis Admitting Information Admitting Physician Requests: Admit Ruddy Hernández MD September 12, 2017 17:19
[2017-09-12] MEDS ORDERED: TRAZ1TAB14 PO (17:23)
[2017-09-12] MEDS ORDERED: LAMO25 PO (17:23)
[2017-09-12] MEDS ORDERED: LEXA20TA PO (17:23)
--- NOTE | 2017-09-12 17:38 | RADRPT ---
EXAM DATE/TIME: 09/12/2017 17:20 [facility] COMPARISON: CHEST SINGLE AP, April 03, 2016, 9:25. INDICATIONS : Fever and short of breath. MEDICAL HISTORY : None. SURGICAL HISTORY : None. ENCOUNTER: Initial ACUITY: 3 days PAIN SCORE: 0/10 LOCATION: Bilateral chest FINDINGS: A single view of the chest demonstrates the lungs to be symmetrically aerated without evidence of mas s, infiltrate or effusion. The cardiomediastinal contours are unremarkable. Osseous structures are intact. CONCLUSION: No acute cardiopulmonary process. Matthew Macedo MD on September 12, 2017 at 17:35 Board Certified Radiologist. This report was verified electronically.
[2017-09-12 17:49] LABS: AUTOMATED NEUTROPHIL # 7.9 TH/MM3 (1.8-7.7); BASOPHIL % 0.4 % (0.0-2.0); EOSINOPHIL # 0.1 TH/MM3 (0-0.4); EOSINOPHIL % 0.8 % (0.0-4.0); HEMATOCRIT 36.4 % (35.0-46.0); HEMOGLOBIN 12.5 GM/DL (11.6-15.3); LYMPH % 11.8 % (9.0-44.0); LYMPHOCYTE # 1.2 TH/MM3 (1.0-4.8); MEAN CELL VOLUME 89.1 FL (80.0-100.0); MEAN CORPUSCULAR HEMOGLOBIN 30.5 PG (27.0-34.0); MEAN CORPUSCULAR HGB CONC 34.2 % (32.0-36.0); MEAN PLATELET VOLUME 7.9 FL (7.0-11.0); MONO % 11.5 % (0.0-8.0); MONOCYTE # 1.2 TH/MM3 (0-0.9); NEUT % 75.5 % (16.0-70.0); PLATELET COUNT 209 TH/MM3 (150-450); RED BLOOD COUNT 4.08 MIL/MM3 (4.00-5.30); RED CELL DISTRIBUTION WIDTH 13.3 % (11.6-17.2); WHITE BLOOD COUNT 10.4 TH/MM3 (4.0-11.0)
[2017-09-12 17:57] LABS: BILIRUBIN, URINE NEG (NEG); BLOOD, URINE SMALL (NEG); GLUCOSE,URINE NEG (NEG); KETONE, URINE NEG (NEG); NITRITE,URINE NEG (NEG); URINE COLOR YELLOW (YELLW/STRAW); URINE LEUKOCYTE ESTERASE TRACE (NEG)
[2017-09-12 18:11] VITALS: TEMP 99.4
[2017-09-12 18:11] LABS: MUCUS URINE FEW /lpf (OCC); SQUAMOUS EPITHELIAL CELL URINE <1 /hpf (0-5)
[2017-09-12 18:23] LABS: ALKALINE PHOSPHATASE 56 U/L (45-117); ALT (GPT) 18 U/L (10-53); TOTAL BILIRUBIN ADULT 0.6 MG/DL (0.2-1.0); TOTAL PROTEIN 7.2 GM/DL (6.4-8.2)
[2017-09-12 18:24] LABS: ALBUMIN 3.1 GM/DL (3.4-5.0); AST (GOT) 16 U/L (15-37); BICARBONATE 24.2 MEQ/L (21.0-32.0); BLOOD UREA NITROGEN 11 MG/DL (7-18); CALCIUM 8.4 MG/DL (8.5-10.1); CHLORIDE 106 MEQ/L (98-107); CREATININE 0.84 MG/DL (0.50-1.00); GLOMERULAR FILTRATION RATE 82 ML/MIN (>89); GLUCOSE,RANDOM 107 MG/DL (74-106); SODIUM (NA) 138 MEQ/L (136-145)
[2017-09-12 19:05] VITALS: BP 110/57; PULSE 69; RESP 18; TEMP 98.7; O2SAT 96
[2017-09-12 20:00] VITALS: BP_SYST 120; BP_SYST 195; BP_DIAS 58; BP_DIAS 98; PULSE 116; PULSE 70; RESP 16; TEMP 98; O2SAT 96
[2017-09-12] MEDS ORDERED: SENNOSIDES 8.6 MG TAB PO PRN (20:00)
[2017-09-12] MEDS ORDERED: NALOXONE HCL 0.4 MG/ML AMP IV PUSH PRN (20:00)
[2017-09-12] MEDS ORDERED: SODIUM CHLORIDE 0.9% FLUSH 10 ML FLUSH IV FLUSH PRN (20:00)
[2017-09-12] MEDS ORDERED: ONDANSETRON HCL 4 MG/2 ML VIAL IVP PRN (20:00)
[2017-09-12] MEDS ORDERED: MAGNESIUM HYDROXIDE SUSP 30 ML CUP PO PRN (20:00)
[2017-09-12] MEDS ORDERED: BISACODYL 10 MG SUPP RECTAL PRN (20:00)
[2017-09-12] MEDS ORDERED: Vancomycin Consult Pharmacy 1 EA OTHER SCH (20:00)
[2017-09-12] MEDS ORDERED: LACTULOSE SYRUP 20 GM/30 ML CUP PO PRN (20:00)
--- NOTE | 2017-09-12 20:03 | HHI.HP ---
HPI Service [facility] Primary Care Physician No Primary Care Physician Admission Diagnosis fever,hx IVDA, hx acute bacterial endocarditis Diagnoses: Chief Complaint: Fever Travel History International Travel<30 Days: No Contact w/Intl Traveler <30 Da: No Traveled to Known Affected Are: No History of Present Illness Ms. Houser is a 26-year-old female with a history of IV drug use and previous endocarditis who presents to the emergency department due to fever that started 3 days prior to this admission. She complains of mild shortness of breath, upper neck pain. She is able to move her head up and down and [id number]. She also reports a toothache on her lower right side. She has some swelling of her right jaw but that resolved. Patient reported that she has been clean for 10 months. No history of valve replacement. She denies any chest pain, shortness of breath. Denies nausea or vomiting or diarrhea. No changes in bowel or bladder habits. Echocardiogram as well as LADI from April 2015 showed no vegetation. Review of Systems Except as stated in HPI: all other systems reviewed are Neg Past Family Social History Past Medical History Endocarditis, IV drug use, asthma, depression. Past Surgical History Appendectomy, , hysterectomy Reported Medications Lexapro (Escitalopram Oxalate) 20 Mg Tab 40 Mg PO DAILY Trazodone (Trazodone HCl) 150 Mg Tablet 150 Mg PO HS Lamictal (Lamotrigine) 25 Mg Tab 25 Mg PO BID Allergies: Uncoded Allergies: NO NARCOTICS (Adverse Reaction, Unknown, 10/27/16) PER PT REQUEST Family History No family history of heart disease, cancer. Social History Alcohol Use: Yes (denies) Tobacco Use: Yes (1/2 ppd) Substance Use: Yes (hx of meth and dilaudid IV) Physical Exam Vital Signs Vital Signs Date Time Temp Pulse Resp B/P (MAP) Pulse Ox O2 Delivery O2 Flow Rate FiO2 09/12/17 19:05 98.7 69 18 110/57 (74) 96 Room Air 09/12/17 18:11 99.4 09/12/17 17:19 100.0 95 18 110/61 (77) 97 Room Air 09/12/17 17:19 18 96 Room Air 09/12/17 16:51 102.0 105 20 173/74 (107) 97 Physical Exam GENERAL: This is a well-nourished, well-developed patient, in no apparent distress. SKIN: No rashes, ecchymoses or lesions. Warm and dry. HEAD: Atraumatic. Normocephalic. No temporal or scalp tenderness. EYES: Pupils equal round and reactive. No injection or drainage. ENT: Nose without bleeding, purulent drainage or septal hematoma. Airway patent. NECK: Trachea midline. No lymphadenopathy. Supple, nontender, no meningeal signs. CARDIOVASCULAR: Regular rate and rhythm without murmurs, gallops, or rubs. No JVD. RESPIRATORY: Clear to auscultation. Breath sounds equal bilaterally. No wheezes , rales, or rhonchi. GASTROINTESTINAL: Abdomen soft, non-tender, nondistended. No guarding. MUSCULOSKELETAL: Extremities without clubbing, cyanosis, or edema. NEUROLOGICAL: Awake and alert. Cranial nerves II through XII intact. No focal neurological deficits. Normal speech. Laboratory Laboratory Tests Test 09/12/17 17:17 White Blood Count 10.4 Red Blood Count 4.08 Hemoglobin 12.5 Hematocrit 36.4 Mean Corpuscular Volume 89.1 Mean Corpuscular Hemoglobin 30.5 Mean Corpuscular Hemoglobin Concent 34.2 Red Cell Distribution Width 13.3 Platelet Count 209 Mean Platelet Volume 7.9 Neutrophils (%) (Auto) 75.5 Lymphocytes (%) (Auto) 11.8 Monocytes (%) (Auto) 11.5 Eosinophils (%) (Auto) 0.8 Basophils (%) (Auto) 0.4 Neutrophils # (Auto) 7.9 Lymphocytes # (Auto) 1.2 Monocytes # (Auto) 1.2 Eosinophils # (Auto) 0.1 Basophils # (Auto) 0.0 CBC Comment DIFF FINAL Differential Comment Urine Color YELLOW Urine Turbidity HAZY Urine pH 6.0 Urine Specific [place] 1.019 Urine Protein TRACE Urine Glucose (UA) NEG Urine Ketones NEG Urine Occult Blood SMALL Urine Nitrite NEG Urine Bilirubin NEG Urine Urobilinogen 0.2 Urine Leukocyte Esterase TRACE Urine RBC 5 Urine WBC 17 Urine Squamous Epithelial Cells <1 Urine Mucus FEW Microscopic Urinalysis Comment CATH-CULTURE IND Blood Urea Nitrogen 11 Creatinine 0.84 Random Glucose 107 Total Protein 7.2 Albumin 3.1 Calcium Level 8.4 Alkaline Phosphatase 56 Aspartate Amino Transf (AST/SGOT) 16 Alanine Aminotransferase (ALT/SGPT) 18 Total Bilirubin 0.6 Sodium Level 138 Potassium Level 3.9 Chloride Level 106 Carbon Dioxide Level 24.2 Anion Gap 8 Estimat Glomerular Filtration Rate 82 Lactic Acid Level 0.9 Date/Time Source Procedure Growth Status 09/12/17 17:17 Blood Peripheral Aerobic Blood Culture Pending Received 09/12/17 17:17 Blood Peripheral Anaerobic Blood Culture Pending Received 09/12/17 17:17 Urine Catheterized Urine Urine Culture Pending Received Result Diagram: 09/12/17 1717 09/12/17 1717 Imaging Last Impressions Chest X-Ray 09/12/17 1708 Signed Impressions: Service Date/Time: Tuesday, September 12, 2017 17:20 - CONCLUSION: No acute cardiopulmonary process. MD Dorian Smith VTE Risk Assessment Dorian VTE Risk Assessment: No/Low Risk (score <= 1) Caprini Risk Assessment Model Point Value = 1 Point Value = 2 Point Value = 3 Point Value = 5 Age 41-60 Minor surgery BMI > 25 kg/m2 Swollen legs Varicose veins or History of unexplained or recurrent spontaneous Oral contraceptives or hormone replacement Sepsis (< 1 month) Serious lung disease, including pneumonia (< 1 month) Abnormal pulmonary function Acute myocardial infarction Congestive heart failure (< 1 month) History of inflammatory bowel disease Medical patient at bed rest Age 61-74 Arthroscopic surgery Major open surgery (> 45 min) Laparoscopic surgery (> 45 min) Malignancy Confined to bed (> 72 hours) Immobilizing plaster cast Central venous access Age >= 75 History of VTE Family history of VTE Factor V Leiden Prothrombin [id number] Lupus anticoagulant Anticardiolipin antibodies Elevated serum homocysteine Heparin-induced thrombocytopenia Other congenital or acquired thrombophilia Stroke (< 1 month) Elective arthroplasty Hip, pelvis, or leg fracture Acute spinal cord injury (< 1 month) Prophylaxis Regimen Total Risk Factor Score Risk Level Prophylaxis Regimen 0-1 Low Early ambulation 2 Moderate Order ONE of the following: *Sequential Compression Device (SCD) *Heparin 5000 units SQ BID 3-4 Higher Order ONE of the following medications: *Heparin 5000 units SQ TID *Enoxaparin/Lovenox 40 mg SQ daily (WT < 150 kg, CrCl > 30 mL/min) *Enoxaparin/Lovenox 30 mg SQ daily (WT < 150 kg, CrCl > 10-29 mL/min) *Enoxaparin/Lovenox 30 mg SQ BID (WT < 150 kg, CrCl > 30 mL/min) AND/OR *Sequential Compression Device (SCD) 5 or more Highest Order ONE of the following medications: *Heparin 5000 units SQ TID (Preferred with Epidurals) *Enoxaparin/Lovenox 40 mg SQ daily (WT < 150 kg, CrCl > 30 mL/min) *Enoxaparin/Lovenox 30 mg SQ daily (WT < 150 kg, CrCl > 10-29 mL/min) *Enoxaparin/Lovenox 30 mg SQ BID (WT < 150 kg, CrCl > 30 mL/min) AND *Sequential Compression Device (SCD) Assessment and Plan Problem List: (1) Fever ICD Code: R50.9 - Fever, unspecified Status: Acute (2) History of intravenous drug abuse ICD Code: Z87.898 - Personal history of other specified conditions Status: Acute (3) History of acute bacterial endocarditis ICD Code: Z86.79 - Personal history of other diseases of the circulatory system Status: Acute Assessment and Plan Ms. Houser is a pleasant 26-year-old female with a history of endocarditis, IV drug use who presents to the emergency department due to 3 day duration of fever. Patient complains of mild shortness of breath, neck pain. She also reports a toothache on her lower right side. She has some swelling of her right jaw but that resolved. She had endocarditis in 2012. She has been clean since December 2016. Last echo as well as LADI from April 2015 did not show any endocarditis. Fever History of IV drug use -has been clean since December 2016. History of endocarditis Neck pain -Fever is somewhat non-specific at this point. No leukocytosis -Follow-up blood culture -We will obtain 2D echo limited. -Flu screen -Vancomycin one dose now and consult pharmacy for vancomycin dosing. Trough level 15-20 -If patient remains febrile, consider imaging studies of the cervical spine -Acetaminophen for pain, fever. Right lower toothache - no edema, discharge noted. There is a dental cavity. Full code. SCDs, Ambulation. Physician Certification 2 Midnight Certification Type: Admission for Inpatient Services Order for Inpatient Services The services are ordered in accordance with Medicare regulations or non- Medicare payer requirements, as applicable. In the case of services not specified as inpatient-only, they are appropriately provided as inpatient services in accordance with the 2-midnight benchmark. Estimated LOS (days): 2 days is the estimated time the patient will need to remain in the hospital, assuming treatment plan goals are met and no additional complications. Post-Hospital Plan: Home Problem Qualifiers (1) Fever: Qualified Codes: R50.9 - Fever, unspecified Cammy Thorpe DO September 12, 2017 8:03 pm
[2017-09-12] MEDS ORDERED: VANCOMYCIN INJ 1,500 MG in SODIUM CHLORID 0.9% 500 ML INJ 500 ML IV ONE (21:00)
[2017-09-12] MEDS ORDERED: NON-FORMULARY DRUG (Trazodone 150 MG) PO SCH (21:00)
[2017-09-12] MEDS: traZODone HCL 50 MG TAB PO SCH (21:56)
[2017-09-12] MEDS: lamoTRIgine 25 MG TAB PO SCH (21:56)
[2017-09-12] MEDS: ACETAMINOPHEN 325 MG TAB PO PRN (21:57)
[2017-09-12] MEDS: SODIUM CHLORIDE 0.9% FLUSH 10 ML FLUSH IV FLUSH SCH (21:57)
[2017-09-13] VITALS: BP 113/58; PULSE 78; RESP 16; TEMP 98.2; O2SAT 97
[2017-09-13] MEDS: ACETAMINOPHEN 325 MG TAB PO PRN ×3 (01:26→13:06)
[2017-09-13 04:00] VITALS: BP 137/58; PULSE 80; RESP 16; TEMP 97.8; O2SAT 97
[2017-09-13] MEDS: VANCOMYCIN 1,000 MG/NS 250 ML IV SCH ×6 (05:23→21:27)
[2017-09-13 07:23] LABS: BASOPHIL % 0.3 % (0.0-2.0); EOSINOPHIL # 0.1 TH/MM3 (0-0.4); EOSINOPHIL % 1.4 % (0.0-4.0); HEMATOCRIT 35.3 % (35.0-46.0); LYMPH % 12.2 % (9.0-44.0); LYMPHOCYTE # 1.2 TH/MM3 (1.0-4.8); MEAN CELL VOLUME 88.7 FL (80.0-100.0); MEAN CORPUSCULAR HEMOGLOBIN 30.1 PG (27.0-34.0); MEAN CORPUSCULAR HGB CONC 33.9 % (32.0-36.0); MEAN PLATELET VOLUME 7.9 FL (7.0-11.0); MONO % 12.5 % (0.0-8.0); MONOCYTE # 1.2 TH/MM3 (0-0.9); NEUT % 73.6 % (16.0-70.0); PLATELET COUNT 212 TH/MM3 (150-450); RED BLOOD COUNT 3.98 MIL/MM3 (4.00-5.30); RED CELL DISTRIBUTION WIDTH 13.1 % (11.6-17.2); WHITE BLOOD COUNT 9.5 TH/MM3 (4.0-11.0)
[2017-09-13 07:47] LABS: BICARBONATE 25.4 MEQ/L (21.0-32.0); CALCIUM 8.2 MG/DL (8.5-10.1); CREATININE 0.74 MG/DL (0.50-1.00)
[2017-09-13 08:15] VITALS: BP 100/54; PULSE 78; RESP 19; TEMP 99.2; O2SAT 96
[2017-09-13] MEDS: lamoTRIgine 25 MG TAB PO SCH ×2 (09:00→21:27)
[2017-09-13] MEDS: SODIUM CHLORIDE 0.9% FLUSH 10 ML FLUSH IV FLUSH SCH ×2 (09:01→21:28)
[2017-09-13] MEDS: ESCITALOPRAM OXALATE 20 MG TAB PO SCH (09:01)
--- NOTE | 2017-09-13 10:45 | HHI.PR ---
Subjective Remarks Patient complained of persistent headache and neck pain. Reports she feels her neck is also stiff. She complains of photosensitivity reports that the symptoms have been going on for the past 5 days. She denies any nausea or vomiting however has had poor appetite. No complaints of loose stools and does have on and off constipation. Reports some lower abdominal cramps earlier. Complains some chills and fevers. States her last IV drug use is back in December 2016. Objective Vitals Vital Signs Date Time Temp Pulse Resp B/P (MAP) Pulse Ox O2 Delivery O2 Flow Rate FiO2 09/13/17 08:15 99.2 78 19 100/54 (69) 96 09/13/17 04:00 97.8 80 16 137/58 (84) 97 09/13/17 00:00 98.2 78 16 113/58 (76) 97 09/12/17 20:00 98.0 70 16 120/58 (78) 96 09/12/17 19:05 98.7 69 18 110/57 (74) 96 Room Air 09/12/17 18:11 99.4 09/12/17 17:19 100.0 95 18 110/61 (77) 97 Room Air 09/12/17 17:19 18 96 Room Air 09/12/17 16:51 102.0 105 20 173/74 (107) 97 I/O 09/12/17 09/12/17 09/12/17 09/13/17 09/13/17 09/13/17 07:00 15:00 23:00 07:00 15:00 23:00 Intake Total 500 ml Balance 500 ml Intake IV Total 500 ml # Voids 1 Result Diagram: 09/13/17 0602 09/13/17 0602 Other Results Microbiology Date/Time Source Procedure Growth Status 09/12/17 17:17 Blood Peripheral Aerobic Blood Culture Pending Received 09/12/17 17:17 Blood Peripheral Anaerobic Blood Culture Pending Received 09/12/17 17:17 Urine Catheterized Urine Urine Culture Pending Received Objective Remarks GENERAL: This is a well-nourished, well-developed patient, in no apparent distress. HEENT: No lymphadenopathy, supple full range of motion CARDIOVASCULAR: Regular rate and rhythm without murmurs, gallops, or rubs. RESPIRATORY: Clear to auscultation. Breath sounds equal bilaterally. No wheezes , rales, or rhonchi. GASTROINTESTINAL: Abdomen soft, non-tender, nondistended. Normal active bowel sounds MUSCULOSKELETAL: Extremities without clubbing, cyanosis, or edema. NEURO: Alert & Oriented x4 to person, place, time, situation. Moves all ext x4 A/P Problem List: (1) Fever ICD Code: R50.9 - Fever, unspecified Status: Acute (2) History of intravenous drug abuse ICD Code: Z87.898 - Personal history of other specified conditions Status: Acute (3) History of acute bacterial endocarditis ICD Code: Z86.79 - Personal history of other diseases of the circulatory system Status: Acute Assessment and Plan Ms. Houser is a pleasant 26-year-old female with a history of endocarditis, IV drug use who presents to the emergency department due to 3 day duration of fever. Patient complains of mild shortness of breath, neck pain. She also reports a toothache on her lower right side. She has some swelling of her right jaw but that resolved. She had endocarditis in 2012. She has been clean since December 2016. Last echo as well as LADI from April 2015 did not show any endocarditis. Fever present on admission History of IV drug use -has been clean since December 2016. Avoid narcotics. History of endocarditis Fever with a history of neck pain neck pain and now cephalgia - will obtain an LP to rule out bacterial versus viral meningitis as patient does have component of photosensitivity and photophobia -Fever is somewhat non-specific at this point. No leukocytosis -Follow-up blood culture showed no growth -We will obtain 2D echo limited. -Flu screen -Vancomycin one dose now and consult pharmacy for vancomycin dosing. Trough level 15-20 -Add Rocephin until final LP CSF results are available. -Acetaminophen for pain, fever. Right lower toothache - no edema, discharge noted. There is a dental cavity. Full code. SCDs, Ambulation. Discharge Planning Home when clinically stable. Problem Qualifiers (1) Fever: Qualified Codes: R50.9 - Fever, unspecified Cathryn Encarnacion MD September 13, 2017 10:45
[2017-09-13 11:52] VITALS: BP 109/61; PULSE 75; RESP 20; TEMP 99.4; O2SAT 96
[2017-09-13 12:29] LABS: INTERNATIONAL NORMALIZED RATIO 1.1 RATIO
[2017-09-13] MEDS: cefTRIAXone INJ 2,000 MG in SODIUM CHLORIDE 0.9% INJ 100 ML IV SCH (12:37)
--- NOTE | 2017-09-13 14:32 | PD.RAD ---
Post Procedure Progress Note Pre Procedure Diagnosis: (1) Sepsis (2) Drug abuse (3) Fever (4) Cephalalgia Post Procedure Diagnosis: (1) Sepsis (2) Cephalalgia (3) Drug abuse (4) History of intravenous drug abuse (5) History of acute bacterial endocarditis (6) Fever Procedure Date: September 13, 2017 Supervising Radiologist: Matthew Macedo Proceduralist/Assist: RT Jennifer(Ana), Other (Clem) Plan of Activity Patient to Unit: Nursing Unit Patient Condition: Good See PACS Report for procedural detail/treatment Spinal Procedure Lumbar Puncture L3-L4 Fluid Removal (CCs): 19 Fluid Description: Clear Puncture Time: 14:17 Findings: OP: 15 cmH2O Matthew Macedo MD September 13, 2017 14:32
[2017-09-13 15:57] VITALS: BP 122/55; PULSE 76; RESP 20; TEMP 99.5; O2SAT 97
[2017-09-13 16:03] LABS: TOTAL PROTEIN,CSF 26.3 MG/DL (15.0-45.0)
[2017-09-13 16:30] LABS: CSF HISTIOCYTES 10 %; CSF LYMPHOCYTES 76 %; CSF MONOCYTES 14 %
[2017-09-13 16:31] LABS: RBC TUBE #1 8 /MM3; SUPERNATE COLOR TUBE #1 CLEAR (CLEAR); VOLUME TUBE # 1 3.3 ML; WBC TUBE #1 5 /MM3 (0-10)
--- NOTE | 2017-09-13 18:30 | RADRPT ---
EXAM DATE: 09/13/2017 3:39 PM EDT AGE/SEX: 26 years / Female INDICATIONS: Patient presents with headache for four days. In need of lumbar puncture. CLINICAL DATA: This is the patient's initial encounter. Patient reports that signs and symptoms have been present for 4 - 6 days and indicates a pain score of 8/10. MEDICAL/SURGICAL HISTORY: . Endocarditis drug Use Asthma Depression . AppendectomyC-SectionHys terectomy COMPARISON: No prior [facility] exams available for comparison. FLUORO TIME (min): 1.06 IMAGE SERIES: 1 ACCESS SITE: L2-3 LUMBAR PUNCTURE TIME: 14:17 hours OPENING PRESSURE: 15cc cm of water FLUID: Total volume of 19 cc of clear fluid was removed. Fluid was sent to lab for ordered studies. . . PROCEDURE: 1. Fluoroscopic guided lumbar puncture. 2. Recording of opening pressure. The risks, benefits and alternatives to the procedure were explained and verbal and written consent w as obtained. The site was prepped in sterile fashion. Full sterile technique was used, including ca p, mask, sterile gloves and gown and a large sterile sheet. Hand hygiene and 2% chlorhexidine and/or betadine/alcohol prep was utilized per protocol for cutaneous antisepsis. The skin and subcutaneous tissues were infiltrated with local anesthetic solution. With fluoroscopic guidance the lumbar thecal sac was punctured at the above level described above and the opening pressure was recorded. The above described fluid was removed without difficulty. The patient tolerated the procedure well and there were no complications. CONCLUSION: Uncomplicated fluoroscopically guided lumbar puncture with pressures as above. Electronically signed by: Matthew Macedo MD 09/13/2017 6:28 PM EDT
[2017-09-13 19:57] VITALS: BP 136/80; PULSE 82; RESP 16; TEMP 98.5; O2SAT 95
[2017-09-13] MEDS ORDERED: ACETAMIN 325 MG/BUTALBITAL 50 MG/CAFFEINE 40 MG TAB PO ONE (21:15)
[2017-09-13] MEDS: traZODone HCL 50 MG TAB PO SCH (21:28)
[2017-09-13] MEDS ORDERED: PHARMACY ORDERED LAB ONE (21:45)
[2017-09-14] VITALS: BP 115/54; PULSE 67; RESP 16; TEMP 97.8; O2SAT 97
[2017-09-14 04:56] VITALS: BP 96/55; PULSE 78; RESP 16; TEMP 97.7; O2SAT 95
[2017-09-14] MEDS: VANCOMYCIN 1,000 MG/NS 250 ML IV SCH ×2 (05:54)
[2017-09-14] MEDS: ACETAMINOPHEN 325 MG TAB PO PRN ×2 (06:07→12:05)
[2017-09-14 07:39] VITALS: BP 104/57; PULSE 71; RESP 20; TEMP 98.5; O2SAT 96
[2017-09-14] MEDS: lamoTRIgine 25 MG TAB PO SCH ×2 (08:30→21:11)
[2017-09-14] MEDS: SODIUM CHLORIDE 0.9% FLUSH 10 ML FLUSH IV FLUSH SCH ×2 (08:30→21:00)
[2017-09-14] MEDS: ESCITALOPRAM OXALATE 20 MG TAB PO SCH (08:30)
[2017-09-14 12:02] VITALS: BP 109/55; PULSE 68; RESP 20; TEMP 97.7; O2SAT 96
[2017-09-14] MEDS: cefTRIAXone INJ 2,000 MG in SODIUM CHLORIDE 0.9% INJ 100 ML IV SCH (12:04)
--- NOTE | 2017-09-14 14:59 | HHI.PR ---
Subjective Remarks The patient complains of headache localized in the right frontal area and the left occipital region. The headache is worse when the patient stands up. Patient states light is bothering her. States she felt nauseous earlier. Denies fevers or chills. Objective Vitals Vital Signs Date Time Temp Pulse Resp B/P (MAP) Pulse Ox O2 Delivery O2 Flow Rate FiO2 09/14/17 13:05 18 09/14/17 12:02 97.7 68 20 109/55 (73) 96 09/14/17 07:39 98.5 71 20 104/57 (73) 96 09/14/17 04:56 97.7 78 16 96/55 (69) 95 09/14/17 00:00 97.8 67 16 115/54 (74) 97 09/13/17 19:57 98.5 82 16 136/80 (98) 95 09/13/17 15:57 99.5 76 20 122/55 (77) 97 I/O 09/13/17 09/13/17 09/13/17 09/14/17 09/14/17 09/14/17 07:00 15:00 23:00 07:00 15:00 23:00 Intake Total 500 ml 480 ml Balance 500 ml 480 ml Intake Oral 480 ml IV Total 500 ml # Voids 1 3 Result Diagram: 09/13/17 0602 09/13/17 0602 Imaging Last Impressions Lumbar Puncture Fluoroscopy 09/13/17 0000 Signed Impressions: CONCLUSION: Uncomplicated fluoroscopically guided lumbar puncture with pressur es as above. Chest X-Ray 09/12/17 1708 Signed Impressions: Service Date/Time: Tuesday, September 12, 2017 17:20 - CONCLUSION: No acute cardiopulmonary process. Matthew Macedo MD Objective Remarks GENERAL: This is a well-nourished, well-developed patient, in no apparent distress. HEENT: No lymphadenopathy, supple full range of motion CARDIOVASCULAR: Regular rate and rhythm without murmurs, gallops, or rubs. RESPIRATORY: Clear to auscultation. Breath sounds equal bilaterally. No wheezes , rales, or rhonchi. GASTROINTESTINAL: Abdomen soft, non-tender, nondistended. Normal active bowel sounds MUSCULOSKELETAL: Extremities without clubbing, cyanosis, or edema. NEURO: Alert & Oriented x4 to person, place, time, situation. Moves all ext x4 Urinary Catheter: No Vascular Central Line Catheter: No A/P Problem List: (1) Sepsis ICD Code: A41.9 - Sepsis, unspecified organism Status: Acute Plan: Met sepsis criteria on admission with fever, heart rate more than 90. Source is UTI. Continue IV fluids IV Rocephin Sepsis clinically resolving. No further fevers. Tachycardia resolved. (2) UTI (urinary tract infection) ICD Code: N39.0 - Urinary tract infection, site not specified Status: Acute Plan: On IV Rocephin. Continue. Patient growing pansensitive E. coli urine culture. (3) History of intravenous drug abuse ICD Code: Z87.898 - Personal history of other specified conditions Status: Chronic Plan: Patient states that she has not had IV drugs since last December. (4) History of acute bacterial endocarditis ICD Code: Z86.79 - Personal history of other diseases of the circulatory system Status: Acute Plan: Blood cultures negative 2. Patient is a febrile. For now, no indication for echocardiogram to rule out endocarditis. (5) Cephalalgia ICD Code: R51 - Headache Status: Acute Plan: Suspect the patient has migraine headaches. I will give subcutaneous sumatriptan and start the patient on Fioricet every 6 hours as needed for headaches. Obtain CT of the head. Assessment and Plan DVT prophylaxis: SCDs. I will add Lovenox subcutaneously after head CT is negative. Problem Qualifiers (1) Sepsis: Qualified Codes: A41.9 - Sepsis, unspecified organism (2) Cephalalgia: Qualified Codes: G44.89 - Other headache syndrome Param Bridges MD September 14, 2017 14:59
[2017-09-14] MEDS: SODIUM CHLOR 0.9% 1000 ML INJ 1,000 ML IV SCH (15:25)
--- NOTE | 2017-09-14 16:08 | RADRPT ---
EXAM DATE: 09/14/2017 3:55 PM EDT AGE/SEX: 26 years / Female INDICATIONS: Cephalgia CLINICAL DATA: This is the patient's initial encounter. Patient reports that signs and symptoms have been present for 1 day and indicates a pain score of 3/10. MEDICAL/SURGICAL HISTORY: Asthma. Hepatitis C. Endocarditis, renal disease Appendectomy. Hystere ctomy. RADIATION DOSE: 38.34 CTDI (mGy) COMPARISON: [facility], CT BRAIN W/O CONTRAST, 10/27/2016. . TECHNIQUE: CT of the head without contrast. Using automated exposure control and adjustment of the mA and/or kV according to patient size, radiation dose was kept as low as reasonably achievable to ob tain optimal diagnostic quality images. FINDINGS: Cerebrum: The ventricles are normal for age. No evidence of midline shift, mass lesion, hemorrhage o r acute infarction. No extraaxial fluid collections are seen. Posterior Fossa: The cerebellum and brainstem are intact. The 4th ventricle is midline. The cerebe llopontine angle is unremarkable. Extracranial: The visualized portion of the orbits is intact. Skull: The calvaria is intact. No evidence of skull fracture. CONCLUSION: 1. No acute intracranial abnormality. Electronically signed by: Darrell Hubbard MD 09/14/2017 4:00 PM EDT
[2017-09-14 16:44] VITALS: BP 112/72; PULSE 60; RESP 20; TEMP 98.4; O2SAT 97
[2017-09-14] MEDS: ACETAMIN 325 MG/BUTALBITAL 50 MG/CAFFEINE 40 MG TAB PO PRN (17:06)
[2017-09-14 20:00] VITALS: BP 104/51; PULSE 64; RESP 16; TEMP 97.7; O2SAT 97
[2017-09-14] MEDS: traZODone HCL 50 MG TAB PO SCH (21:09)
[2017-09-14] MEDS ORDERED: PHARMACY ORDERED LAB ONE (21:45)
[2017-09-15] VITALS: BP 94/53; PULSE 59; RESP 16; TEMP 97.8; O2SAT 97
[2017-09-15 04:00] VITALS: BP 107/59; PULSE 67; RESP 16; TEMP 97.6; O2SAT 96
[2017-09-15] MEDS: SODIUM CHLOR 0.9% 1000 ML INJ 1,000 ML IV SCH (04:40)
[2017-09-15 08:00] VITALS: BP 93/54; PULSE 65; RESP 18; TEMP 98.7; O2SAT 97
[2017-09-15] MEDS: SODIUM CHLORIDE 0.9% FLUSH 10 ML FLUSH IV FLUSH SCH ×2 (09:00→21:00)
[2017-09-15] MEDS: lamoTRIgine 25 MG TAB PO SCH ×2 (09:19→21:46)
[2017-09-15] MEDS: ACETAMIN 325 MG/BUTALBITAL 50 MG/CAFFEINE 40 MG TAB PO PRN ×2 (09:20→14:50)
[2017-09-15] MEDS: ESCITALOPRAM OXALATE 20 MG TAB PO SCH (09:20)
[2017-09-15] MEDS ORDERED: SUMAtriptan INJ 6 MG/0.5 ML VIAL SQ ONE (11:30)
[2017-09-15 12:00] VITALS: BP 103/57; PULSE 60; RESP 18; TEMP 97.5; O2SAT 97
[2017-09-15] MEDS: SUMAtriptan INJ 6 MG/0.5 ML VIAL SQ PRN (12:59)
[2017-09-15] MEDS: cefTRIAXone INJ 2,000 MG in SODIUM CHLORIDE 0.9% INJ 100 ML IV SCH (12:59)
[2017-09-15] MEDS ORDERED: SODIUM CHLORID 0.9% 500 ML INJ 500 ML IV ONE (13:45)
--- NOTE | 2017-09-15 14:43 | HHI.PR ---
Subjective Remarks The patient still complaining of headache. Patient states it is worst when she stands up. Headache responds partially to Fioricet. The patient has not been administered the sumatriptan that was ordered as needed. Objective Vitals Vital Signs Date Time Temp Pulse Resp B/P (MAP) Pulse Ox O2 Delivery O2 Flow Rate FiO2 09/15/17 12:00 97.5 60 18 103/57 (72) 97 09/15/17 08:00 98.7 65 18 93/54 (67) 97 09/15/17 04:00 97.6 67 16 107/59 (75) 96 09/15/17 00:00 97.8 59 16 94/53 (67) 97 09/14/17 20:00 97.7 64 16 104/51 (68) 97 09/14/17 18:06 18 09/14/17 16:44 98.4 60 20 112/72 (85) 97 I/O 09/14/17 09/14/17 09/14/17 09/15/17 09/15/17 09/15/17 07:00 15:00 23:00 07:00 15:00 23:00 Intake Total 720 ml 1000 ml Balance 720 ml 1000 ml Intake Oral 720 ml IV Total 1000 ml Result Diagram: 09/13/17 0602 09/13/17 0602 Imaging Last Impressions Head CT 09/14/17 0000 Signed Impressions: CONCLUSION: 1. No acute intracranial abnormality. Lumbar Puncture Fluoroscopy 09/13/17 0000 Signed Impressions: CONCLUSION: Uncomplicated fluoroscopically guided lumbar puncture with pressur es as above. Chest X-Ray 09/12/17 1708 Signed Impressions: Service Date/Time: Tuesday, September 12, 2017 17:20 - CONCLUSION: No acute cardiopulmonary process. Matthew Macedo MD Objective Remarks GENERAL: This is a well-nourished, well-developed patient, in mild distress due to pain. HEENT: No lymphadenopathy, supple full range of motion CARDIOVASCULAR: Regular rate and rhythm without murmurs, gallops, or rubs. RESPIRATORY: Clear to auscultation. Breath sounds equal bilaterally. No wheezes , rales, or rhonchi. GASTROINTESTINAL: Abdomen soft, non-tender, nondistended. Normal active bowel sounds MUSCULOSKELETAL: Extremities without clubbing, cyanosis, or edema. NEURO: Alert & Oriented x4 to person, place, time, situation. Moves all ext x4 Medications and IVs Current Medications Medications (Trade) Dose Ordered Sig/Ursula Route Start Time Stop Time Status Last Admin (NS Flush) 2 ml UNSCH PRN IV FLUSH 09/12/17 20:00 (NS Flush) 2 ml BID IV FLUSH 09/12/17 21:00 09/14/17 08:30 (Tylenol) 650 mg Q4H PRN PO 09/12/17 20:00 09/14/17 12:05 (Zofran Inj) 4 mg Q6H PRN IVP 09/12/17 20:00 (Narcan Inj) 0.4 mg UNSCH PRN IV PUSH 09/12/17 20:00 (Milk Of Magnesia Liq) 30 ml Q12H PRN PO 09/12/17 20:00 (Senokot) 17.2 mg Q12H PRN PO 09/12/17 20:00 (Dulcolax Supp) 10 mg DAILY PRN RECTAL 09/12/17 20:00 (Lactulose Liq) 30 ml DAILY PRN PO 09/12/17 20:00 (Lexapro) 40 mg DAILY PO 09/13/17 09:00 09/15/17 09:20 (LaMICtal) 25 mg BID PO 09/12/17 21:00 09/15/17 09:19 (Desyrel) 150 mg HS PO 09/12/17 21:00 09/14/17 21:09 Ceftriaxone Sodium 2000 mg/ Sodium Chloride 100 ml @ 200 mls/hr Q24H IV 09/13/17 12:00 09/15/17 12:59 (Fioricet 325-50-40) 1 tab Q6H PRN PO 09/14/17 14:45 09/15/17 09:20 (Imitrex Inj) 6 mg UNSCH PRN SQ 09/14/17 14:45 09/15/17 12:59 Sodium Chloride 1,000 ml @ 84 mls/hr [id number] IV 09/14/17 14:45 09/15/17 04:40 Sodium Chloride 500 ml @ 500 mls/hr BOLUS ONCE IV 09/15/17 13:45 09/15/17 14:44 A/P Problem List: (1) Sepsis ICD Code: A41.9 - Sepsis, unspecified organism Status: Acute Plan: Met sepsis criteria on admission with fever, heart rate more than 90. Source is UTI. Continue IV fluids IV Rocephin Sepsis clinically resolving. No further fevers. Tachycardia resolved. Blood cultures negative 3. (2) UTI (urinary tract infection) ICD Code: N39.0 - Urinary tract infection, site not specified Status: Acute Plan: On IV Rocephin. Continue. Patient growing pansensitive E. coli urine culture. 5 08/16 discontinue IV Rocephin. Start the patient on oral Ceftin. (3) History of intravenous drug abuse ICD Code: Z87.898 - Personal history of other specified conditions Status: Chronic Plan: Patient states that she has not had IV drugs since last December. (4) History of acute bacterial endocarditis ICD Code: Z86.79 - Personal history of other diseases of the circulatory system Status: Acute Plan: Blood cultures negative 2. Patient is a febrile. For now, no indication for echocardiogram to rule out endocarditis. (5) Cephalalgia ICD Code: R51 - Headache Status: Acute Plan: Suspect the patient has migraine headaches. I will give subcutaneous sumatriptan and start the patient on Fioricet every 6 hours as needed for headaches. 09/15 CT of the head reviewed by me does not show any acute intracranial abnormality. Sumatriptan was not administered. I will order 1 dose of 0.6 mg subcutaneously of sumatriptan. Continue Fioricet for pain control. (6) Hypotension ICD Code: I95.9 - Hypotension, unspecified Plan: Follow-up orthostatic blood pressure. Ordered 09/14 still not done. We will give a bolus of 500 mL's of normal saline. Assessment and Plan DVT prophylaxis: SCDs. I will add Lovenox subcutaneously after head CT is negative. Discharge Planning [place] to monitor the medical floor. Discharge pending resolution of headache and hypotension. Problem Qualifiers (1) Sepsis: Qualified Codes: A41.9 - Sepsis, unspecified organism (2) Cephalalgia: Qualified Codes: G44.89 - Other headache syndrome (3) Hypotension: Qualified Codes: I95.9 - Hypotension, unspecified Param Bridges MD September 15, 2017 14:43
[2017-09-15 16:00] VITALS: BP 124/73; PULSE 58; RESP 18; TEMP 97.3; O2SAT 94
[2017-09-15 20:00] VITALS: BP 145/89; PULSE 73; RESP 18; TEMP 97.4; O2SAT 97
[2017-09-15] MEDS: traZODone HCL 50 MG TAB PO SCH (21:45)
[2017-09-16] VITALS: BP 102/61; PULSE 55; RESP 18; TEMP 98.2; O2SAT 96
[2017-09-16] MEDS: SODIUM CHLOR 0.9% 1000 ML INJ 1,000 ML IV SCH ×2 (02:20→13:50)
[2017-09-16 04:00] VITALS: BP 98/54; PULSE 64; RESP 18; TEMP 97.3; O2SAT 97
[2017-09-16 08:00] VITALS: BP 93/52; PULSE 54; RESP 17; O2SAT 96
[2017-09-16 08:08] VITALS: BP 93/52; PULSE 54; RESP 17; O2SAT 97
[2017-09-16] MEDS: ESCITALOPRAM OXALATE 20 MG TAB PO SCH (09:23)
[2017-09-16] MEDS: lamoTRIgine 25 MG TAB PO SCH ×2 (09:23→20:19)
[2017-09-16] MEDS: SODIUM CHLORIDE 0.9% FLUSH 10 ML FLUSH IV FLUSH SCH ×2 (09:23→20:19)
[2017-09-16] MEDS: ACETAMIN 325 MG/BUTALBITAL 50 MG/CAFFEINE 40 MG TAB PO PRN ×3 (09:24→18:56)
--- NOTE | 2017-09-16 11:18 | HHI.PR ---
Subjective Remarks Patient states her headache was much improved after administration of sumatriptan. As per medical record administration report this was administered only once yesterday. The patient denies fevers or chills, denies nausea, vomiting. States that she still has severe headache when she stands up or sits up. BP noted on the lower side with a systolic blood pressure in the 90s. Objective Vitals Vital Signs Date Time Temp Pulse Resp B/P (MAP) Pulse Ox O2 Delivery O2 Flow Rate FiO2 09/16/17 08:08 54 17 93/52 (66) 97 09/16/17 04:00 97.3 64 18 98/54 (69) 97 09/16/17 00:00 98.2 55 18 102/61 (75) 96 09/15/17 20:00 97.4 73 18 145/89 (107) 97 09/15/17 16:00 97.3 58 18 124/73 (90) 94 09/15/17 12:00 97.5 60 18 103/57 (72) 97 I/O 09/15/17 09/15/17 09/15/17 09/16/17 09/16/17 09/16/17 07:00 15:00 23:00 07:00 15:00 23:00 Intake Total 1000 ml Balance 1000 ml IV Total 1000 ml # Voids 4 4 Result Diagram: 09/13/17 0602 09/13/17 0602 Imaging Last Impressions Head CT 09/14/17 0000 Signed Impressions: CONCLUSION: 1. No acute intracranial abnormality. Lumbar Puncture Fluoroscopy 09/13/17 0000 Signed Impressions: CONCLUSION: Uncomplicated fluoroscopically guided lumbar puncture with pressur es as above. Chest X-Ray 09/12/17 1708 Signed Impressions: Service Date/Time: Tuesday, September 12, 2017 17:20 - CONCLUSION: No acute cardiopulmonary process. Matthew Macedo MD Objective Remarks GENERAL: This is a well-nourished, well-developed patient, NAD. HEENT: No lymphadenopathy, supple full range of motion CARDIOVASCULAR: Regular rate and rhythm without murmurs, gallops, or rubs. RESPIRATORY: Clear to auscultation. Breath sounds equal bilaterally. No wheezes , rales, or rhonchi. GASTROINTESTINAL: Abdomen soft, non-tender, nondistended. Normal active bowel sounds MUSCULOSKELETAL: Extremities without clubbing, cyanosis, or edema. NEURO: Alert & Oriented x4 to person, place, time, situation. Moves all ext x4 Procedures None A/P Problem List: (1) Sepsis ICD Code: A41.9 - Sepsis, unspecified organism Status: Acute Plan: Met sepsis criteria on admission with fever, heart rate more than 90. Source is UTI. Continue IV fluids IV Rocephin Sepsis clinically resolving. No further fevers. Tachycardia resolved. Blood cultures negative 3. 09/16 discontinue IV Rocephin, start the patient oral Ceftin for a total of 7 days. (2) UTI (urinary tract infection) ICD Code: N39.0 - Urinary tract infection, site not specified Status: Acute Plan: On IV Rocephin. Continue. Patient growing pansensitive E. coli urine culture. 09/16 discontinue IV Rocephin. Start the patient on oral Ceftin. (3) History of intravenous drug abuse ICD Code: Z87.898 - Personal history of other specified conditions Status: Chronic Plan: Patient states that she has not had IV drugs since last December. Blood cultures negative to date. The patient is a febrile. No further workup warranted at this time. (4) History of acute bacterial endocarditis ICD Code: Z86.79 - Personal history of other diseases of the circulatory system Status: Acute Plan: Blood cultures negative 4 Patient is a febrile. No further workup warranted at this time to rule out endocarditis. (5) Cephalalgia ICD Code: R51 - Headache Status: Acute Plan: Suspect the patient has migraine headaches. I will give subcutaneous sumatriptan and start the patient on Fioricet every 6 hours as needed for headaches. 09/15 CT of the head reviewed by me does not show any acute intracranial abnormality. Sumatriptan was not administered. I will order 1 dose of 0.6 mg subcutaneously of sumatriptan. Continue Fioricet for pain control. 09/16 the patient states that her headache improved after administration of sumatriptan subcutaneously. Will repeat sumatriptan today, advised patient to sit up. Continue Versed for pain control. (6) Hypotension ICD Code: I95.9 - Hypotension, unspecified Plan: 09/16 I will reorder orthostatic blood pressure. Will rebolus patient with IV normal saline 500 mL's 1. Follow-up orthostatic blood pressure. Assessment and Plan DVT prophylaxis: SCDs. I will add Lovenox subcutaneously after head CT is negative. Discharge Planning [place] to monitor the medical floor. Discharge pending resolution of headache and hypotension. Problem Qualifiers (1) Sepsis: Qualified Codes: A41.9 - Sepsis, unspecified organism (2) Cephalalgia: Qualified Codes: R51 - Headache (3) Hypotension: Qualified Codes: I95.9 - Hypotension, unspecified Param Bridges MD September 16, 2017 11:18
[2017-09-16] MEDS ORDERED: SODIUM CHLORID 0.9% 500 ML INJ 500 ML IV ONE (11:30)
[2017-09-16] MEDS ORDERED: SUMAtriptan INJ 6 MG/0.5 ML VIAL SQ ONE (13:00)
[2017-09-16] MEDS: SUMAtriptan INJ 6 MG/0.5 ML VIAL SQ PRN ×2 (14:11→20:17)
[2017-09-16 15:03] LABS: AUTOMATED NEUTROPHIL # 3.5 TH/MM3 (1.8-7.7); BASOPHIL % 0.7 % (0.0-2.0); EOSINOPHIL # 0.1 TH/MM3 (0-0.4); EOSINOPHIL % 2.6 % (0.0-4.0); HEMATOCRIT 39.9 % (35.0-46.0); HEMOGLOBIN 13.1 GM/DL (11.6-15.3); LYMPH % 23.9 % (9.0-44.0); LYMPHOCYTE # 1.3 TH/MM3 (1.0-4.8); MEAN CELL VOLUME 89.5 FL (80.0-100.0); MEAN CORPUSCULAR HEMOGLOBIN 29.4 PG (27.0-34.0); MEAN CORPUSCULAR HGB CONC 32.8 % (32.0-36.0); MEAN PLATELET VOLUME 7.3 FL (7.0-11.0); MONO % 9.6 % (0.0-8.0); MONOCYTE # 0.5 TH/MM3 (0-0.9); NEUT % 63.2 % (16.0-70.0); PLATELET COUNT 311 TH/MM3 (150-450); RED BLOOD COUNT 4.46 MIL/MM3 (4.00-5.30); RED CELL DISTRIBUTION WIDTH 13.2 % (11.6-17.2); WHITE BLOOD COUNT 5.6 TH/MM3 (4.0-11.0)
[2017-09-16 15:27] LABS: ALKALINE PHOSPHATASE 58 U/L (45-117); ALT (GPT) 19 U/L (10-53); AST (GOT) 9 U/L (15-37); BICARBONATE 30.5 MEQ/L (21.0-32.0); BLOOD UREA NITROGEN 9 MG/DL (7-18); CHLORIDE 105 MEQ/L (98-107); CREATININE 0.87 MG/DL (0.50-1.00); GLOMERULAR FILTRATION RATE 79 ML/MIN (>89); GLUCOSE,RANDOM 88 MG/DL (74-106); SODIUM (NA) 142 MEQ/L (136-145); TOTAL BILIRUBIN ADULT 0.3 MG/DL (0.2-1.0); TOTAL PROTEIN 7.7 GM/DL (6.4-8.2)
[2017-09-16 15:55] VITALS: BP_SYST 108; BP_SYST 109; BP_SYST 110; BP_DIAS 55; BP_DIAS 68; BP_DIAS 84; PULSE 63; TEMP 98.6; O2SAT 95
--- NOTE | 2017-09-16 18:08 | ECHRPT ---
Indication: VEGETATIONS CONCLUSIONS Normal left ventricular size and wall thickness. The left ventricular systolic function is normal wi th an estimated ejection fraction in the range of 60-65%. Left ventricular diastolic function parameters a re normal. There is mild to moderate tricuspid valve regurgitation. The estimated pulmonary arterial pressure is 36.6 mmHg. BP: 104 / 57 HR: 71 Rhythm: MEASUREMENTS (Male / Female) Normal Values Technical Quality: DOPPLER TR Peak Velocity 258.0 cm/s TR Peak Gradient 26.6 mmHg Right Atrial Pressure 10.0 mmHg Pulmonary Artery Systolic Pressu 36.6 mmHg Right Ventricular Systolic Press 36.6 mmHg FINDINGS LEFT VENTRICLE Normal left ventricular size and wall thickness. The left ventricular systolic function is normal wi th an estimated ejection fraction in the range of 60-65%. Left ventricular diastolic function parameters a re normal. RIGHT VENTRICLE Normal right ventricular size and systolic function. LEFT ATRIUM The left atrial size is normal. RIGHT ATRIUM The right atrial size is normal. ATRIAL SEPTUM Normal atrial septal thickness without atrial level shunting by limited color doppler interrogation. AORTA The aortic root and proximal ascending aorta are normal in size on limited imaging. MITRAL VALVE Structurally normal mitral valve. No mitral valve stenosis or regurgitation. AORTIC VALVE Trileaflet aortic valve. No aortic valve stenosis or regurgitation. TRICUSPID VALVE Structurally normal tricuspid valve. There is mild to moderate tricuspid valve regurgitation. The estimated pulmonary arterial pressure is 36.6 mmHg. PULMONARY VALVE No pulmonary valve regurgitation or stenosis. VESSELS The inferior vena cava is normal in size. PERICARDIUM No pericardial effusion. Emre Cobian MD, FACC Edited by: arts administrator arts administrator (Electronically Signed) Final Date:14 Sep 2017 13:40 Amended: 16 Sep 2017 18:07
[2017-09-16 20:15] VITALS: BP 127/69; PULSE 67; RESP 18; TEMP 97.4; O2SAT 99
[2017-09-16] MEDS: traZODone HCL 50 MG TAB PO SCH (20:18)
[2017-09-16] MEDS: CEFUROXIME AXETIL 500 MG TAB PO SCH (20:18)
[2017-09-17] VITALS (8 sets, daily range): BP systolic 92–138; BP diastolic 54–85; PULSE 60–83; RESP 17–20; TEMP 97.9–98.5; O2SAT 95–99
[2017-09-17] MEDS: SODIUM CHLOR 0.9% 1000 ML INJ 1,000 ML IV SCH (02:20)
[2017-09-17] MEDS: ACETAMIN 325 MG/BUTALBITAL 50 MG/CAFFEINE 40 MG TAB PO PRN ×3 (03:22→18:42)
[2017-09-17] MEDS: CEFUROXIME AXETIL 500 MG TAB PO SCH ×2 (07:41→20:49)
[2017-09-17] MEDS: ESCITALOPRAM OXALATE 20 MG TAB PO SCH (07:42)
[2017-09-17] MEDS: lamoTRIgine 25 MG TAB PO SCH ×2 (07:42→20:50)
[2017-09-17] MEDS: SODIUM CHLORIDE 0.9% FLUSH 10 ML FLUSH IV FLUSH SCH ×2 (07:51→20:50)
--- NOTE | 2017-09-17 12:53 | HHI.PR ---
Subjective Remarks Follow-up for headache, not improved, worse yesterday than today, no new symptoms. No paresthesia or focal weakness. Objective Vitals Vital Signs Date Time Temp Pulse Resp B/P (MAP) Pulse Ox O2 Delivery O2 Flow Rate FiO2 09/17/17 11:47 98.1 64 20 104/68 (80) 98 09/17/17 07:42 97.9 60 20 92/54 (67) 96 09/17/17 05:15 98.0 63 17 118/70 (86) 99 09/17/17 00:00 98.5 69 19 115/63 (80) 99 09/16/17 20:15 97.4 67 18 127/69 (88) 99 09/16/17 15:55 98.6 63 110/68 (82) 95 109/55 (73) 108/84 (92) I/O 09/16/17 09/16/17 09/16/17 09/17/17 09/17/17 09/17/17 07:00 15:00 23:00 07:00 15:00 23:00 Intake Total 500 ml 3116 ml 600 ml Output Total 0 ml Balance 500 ml 3116 ml 600 ml Intake Oral 2448 ml 600 ml IV Total 500 ml 668 ml Output Stool Total 0 ml # Voids 4 4 8 2 # Bowel Movements 0 0 Result Diagram: 09/16/17 1408 09/16/17 1408 Objective Remarks GENERAL: This is a well-nourished, well-developed patient, NAD. CARDIOVASCULAR: Regular rate and rhythm without murmurs, gallops, or rubs. RESPIRATORY: Clear to auscultation. Breath sounds equal bilaterally. No wheezes , rales, or rhonchi. GASTROINTESTINAL: Abdomen soft, non-tender, nondistended. Normal active bowel sounds MUSCULOSKELETAL: Extremities without clubbing, cyanosis, or edema. NEURO: Alert & Oriented x4 to person, place, time, situation. Moves all ext x4 , no focal deficits. Procedures None A/P Problem List: (1) Sepsis ICD Code: A41.9 - Sepsis, unspecified organism Status: Acute (2) UTI (urinary tract infection) ICD Code: N39.0 - Urinary tract infection, site not specified Status: Acute (3) History of intravenous drug abuse ICD Code: Z87.898 - Personal history of other specified conditions Status: Chronic (4) History of acute bacterial endocarditis ICD Code: Z86.79 - Personal history of other diseases of the circulatory system Status: Acute (5) Cephalalgia ICD Code: R51 - Headache Status: Acute (6) Hypotension ICD Code: I95.9 - Hypotension, unspecified Assessment and Plan This is a 26-year-old female presenting with headache. Sepsis secondary to UTI-start IVF, blood cultures negative, ceftriaxone switch to Ceftin, complete 1 week of treatment. Urine culture grew E. coli. History of IV drug use and bacterial endocarditis- Patient states that she has not had IV drugs since last December. Echocardiogram unremarkable. Blood cultures negative. The patient is a febrile. No further workup warranted at this time. Migraine headache-sumatriptan works, Fioricet does not. CT scan of the head unremarkable. On Topamax 50 mg twice a day at home, restart, consult neurology. Orthostatic hypotension-resolved DVT prophylaxis: SCDs. I will add Lovenox subcutaneously after head CT is negative. Discharge Planning Discharge pending resolution of headache Problem Qualifiers (1) Sepsis: Qualified Codes: A41.9 - Sepsis, unspecified organism (2) Cephalalgia: Qualified Codes: R51 - Headache (3) Hypotension: Qualified Codes: I95.9 - Hypotension, unspecified Kojo Mercado MD September 17, 2017 12:53
[2017-09-17] MEDS: SUMAtriptan INJ 6 MG/0.5 ML VIAL SQ PRN ×2 (13:06→20:47)
[2017-09-17] MEDS ORDERED: SUMAtriptan INJ 6 MG/0.5 ML VIAL SQ ONE (14:00)
[2017-09-17] MEDS: TOPIRAMATE 25 MG TAB PO SCH ×2 (14:25→20:50)
--- NOTE | 2017-09-17 18:27 | MB ---
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 She never did have heart surgery. She used to be an IV drug user, but no longer is. About a week ago, she started to have right lower molar toothache and then developed a fever, one of coming in here on 09/12 with shortness of breath, upper neck pain, swelling of her right jaw that had resolved. She has been clean from drugs for 10 months. She had a fever. The med team thought it was cavities. She has noticed that she has had a headache, much better lying down, much worse when she sits up or stands. She was given ceftriaxone and Ceftin. Urine culture grew out E. coli. She had some orthostatic hypotension that was better. MEDICATIONS AT HOME: 1. Lexapro 20 mg a day. 2. Trazodone 3. Lamictal 25 b.i.d. CURRENT MEDICATIONS: 1. Topamax 50 q 12. 2. Ceftin 3. Fioricet. 4. Imitrex. 5. Lexapro, 6. Lamictal, 7. Trazodone. ALLERGIES: SHE IS ALLERGIC TO NARCOTICS PER HER REQUEST. PHYSICAL EXAMINATION VITAL SIGNS: On exam, she has been afebrile here, though initially a temperature to 102. NECK: No carotid bruits. HEART: Regular rhythm. I did not detect a murmur. NEUROLOGIC: Pupils are equal. Discs were sharp. Visual fry are full. Extraocular movements intact without nystagmus. Face is symmetric with normal sensation. Tongue was midline. No tenderness or swelling was noted in her cervical region. There is no drift. She has normal strength in upper and lower extremities bilaterally. DTRs are 2+ symmetric throughout. Toes are downgoing bilaterally. There is no ankle clonus. Pinprick is intact throughout. No ataxic on [id number]. No apparent distress. Temples are nontender bilaterally LABORATORY DATA: CBC is normal. RPR has been negative in the past, hepatitis C positive, HIV negative. UA on admission showed 17 white cells. Urine drug screen in the past was positive, but none was done on this admission. She had an LP here done showed 5 white cells, 8 red cells, 76% lymphocytes, normal protein and glucose. Coags have been normal. Basic metabolic profile: LFTs normal. Albumin 3. CSF cultures have been negative. Gram stain was negative. She had a UTI E coli. IMAGING STUDIES: CAT scan of her brain done was read as negative. She had a chest x-ray that was normal. ASSESSMENT AND PLAN: A headache which is positional. I think she probably has some component of post-lumbar puncture headache and we will have anesthesia do a blood patch. In addition, we will check an MRI of the brain and an MRI of the soft tissue of the neck to see if there is any mass, also look at her dentition. Overall, I thought she looked well neurologically. I also recommend having the dental service, if there is one here, or orofacial look at her tooth region with this, may have been an abscess with a fever. MD JAMES Gusman/ , 06:03 PM , 06:26 PM
[2017-09-17] MEDS ORDERED: GADODIAMIDE PF 287 MG/ML 20 ML VIAL (for RAD MRI) IVCONTRAST ONE (19:44)
--- NOTE | 2017-09-17 20:22 | RADRPT ---
EXAM DATE: 09/17/2017 8:05 PM EDT AGE/SEX: 26 years / Female INDICATIONS: Cephalgia. CLINICAL DATA: This is the patient's initial encounter. Patient reports that signs and symptoms have been present for 2 days and indicates a pain score of 3/10. MEDICAL/SURGICAL HISTORY: Stroke. IVDA. Endocarditis. Appendectomy. section. Hyster ectomy. COMPARISON: No prior [facility] exams available for comparison. TECHNIQUE: Multiplanar, multisequence examination of the brain was performed without and with 20cc ml Omniscan (gadodiamide) contrast as a single exam dose. FINDINGS: Cerebrum: The ventricles are normal for age. No evidence of midline shift, mass lesion, hemorrhage or acute infarction. No extraaxial fluid collections are seen. The pituitary gland and suprasellar cistern are normal in configuration. White Matter: No significant signal abnormalities are seen in the white matter. Posterior Fossa: The cerebellum and brainstem are intact. The 4th ventricle is midline. The cerebel lopontine angle is unremarkable. The cerebellar tonsils are normal in position. Diffusion Imaging: No focal areas of restricted diffusion are seen. No evidence of acute infarction . Extracranial: The visualized portions of the orbits and paranasal sinuses are unremarkable. Post Contrast: No abnormal areas of parenchymal or dural enhancement. No evidence of blood-brain ba rrier breakdown. CONCLUSION: Negative MR Brain with and without contrast. Electronically signed by: Denzel Serna MD 09/17/2017 8:21 PM EDT
--- NOTE | 2017-09-17 20:24 | RADRPT ---
EXAM DATE: 09/17/2017 8:04 PM EDT AGE/SEX: 26 years / Female INDICATIONS: Right neck and facial pain. CLINICAL DATA: This is the patient's initial encounter. Patient reports that signs and symptoms have been present for 2 days and indicates a pain score of 3/10. MEDICAL/SURGICAL HISTORY: Stroke. IVDA, endocarditis. Appendectomy. Hysterectomy. s ection. COMPARISON: No prior [place] exams available for comparison. TECHNIQUE: Multisequence, multiplanar MRI examination was performed without contrast and after the i ntravenous administration of 20cc ml Omniscan (gadodiamide) contrast as a single exam dose. FINDINGS: Nasopharynx: The nasopharyngeal airway has a normal configuration. No mucosal thickening or mass is seen. Oropharynx: The intrinsic muscles of the tongue are symmetric. The tonsillar pillars are intact. T he prevertebral soft tissues are not thickened. Larynx: The supraglottic, glottic, and infraglottic structures are intact. Parapharyngeal: The parapharyngeal space is intact. Salivary Glands: The parotid and submandibular glands are intact. Lymph Nodes: No enlarged or necrotic appearing nodes. Thyroid: Homogeneous enhancement without evidence of nodule. Bones: Homogeneous signal in the marrow of the visualized osseous structures. Post Contrast: No abnormal areas of enhancement seen. CONCLUSION: Negative MR Soft Tissue Neck with and without contrast. Electronically signed by: Denzel Serna MD 09/17/2017 8:23 PM EDT
[2017-09-17] MEDS: traZODone HCL 50 MG TAB PO SCH (20:49)
[2017-09-18] MEDS: ACETAMIN 325 MG/BUTALBITAL 50 MG/CAFFEINE 40 MG TAB PO PRN ×2 (00:32→07:41)
[2017-09-18 00:34] VITALS: BP 92/51; PULSE 95; RESP 18; TEMP 97.8; O2SAT 97
[2017-09-18 02:18] VITALS: BP 103/60
[2017-09-18 05:50] VITALS: BP 85/51; PULSE 55; RESP 18; TEMP 97.8; O2SAT 98
[2017-09-18] MEDS: lamoTRIgine 25 MG TAB PO SCH (07:41)
[2017-09-18] MEDS: CEFUROXIME AXETIL 500 MG TAB PO SCH (07:41)
[2017-09-18] MEDS: ESCITALOPRAM OXALATE 20 MG TAB PO SCH (07:42)
[2017-09-18] MEDS: SODIUM CHLORIDE 0.9% FLUSH 10 ML FLUSH IV FLUSH SCH (07:42)
[2017-09-18] MEDS: TOPIRAMATE 25 MG TAB PO SCH (07:42)
[2017-09-18 07:57] VITALS: BP 97/58; PULSE 57; RESP 18; TEMP 97.3; O2SAT 99
--- NOTE | 2017-09-18 07:59 | HHI.PR ---
Subjective Remarks hudson minim al now laying flat Objective Vital Signs Date Time Temp Pulse Resp B/P (MAP) Pulse Ox O2 Delivery O2 Flow Rate FiO2 09/18/17 07:57 97.3 57 18 97/58 (71) 99 09/18/17 05:50 97.8 55 18 85/51 (62) 98 09/18/17 02:18 103/60 (74) 09/18/17 00:34 97.8 95 18 92/51 (65) 97 09/17/17 20:00 98.5 83 20 133/73 (93) 97 138/78 (98) 115/65 (82) 09/17/17 16:02 98.4 68 20 111/66 (81) 95 09/17/17 13:41 124/85 (98) 09/17/17 13:40 123/85 (98) 09/17/17 13:40 116/67 (83) 09/17/17 11:47 98.1 64 20 104/68 (80) 98 I/O 09/17/17 09/17/17 09/17/17 09/18/17 09/18/17 09/18/17 07:00 15:00 23:00 07:00 15:00 23:00 Intake Total 600 ml 360 ml Balance 600 ml 360 ml Intake Oral 600 ml 360 ml # Voids 2 4 # Bowel Movements 0 Result Diagram: 09/16/17 1408 09/16/17 1408 Objective Remarks awkens nad Assessment and Plan Assessment and Plan imp post lp hudson blood patch mri b and neck neg esr 59 on abt no definite abcess noted on mri med team shou;d review those films Greg Tomas MD September 18, 2017 07:59
[2017-09-18] MEDS ORDERED: IMIT25TA PO (10:48)
[2017-09-18] MEDS ORDERED: CLIN300C5 PO (10:48)
[2017-09-18] MEDS ORDERED: TOPI25 PO (10:48)
[2017-09-18] MEDS ORDERED: Acet-Butal-Caff 325-50-40 Mg PO (10:48)
[2017-09-18] MEDS ORDERED: MACR100C2 PO (10:50)
--- NOTE | 2017-09-18 11:00 | HHI.DS ---
Discharge Summary Admission Date September 12, 2017 at 18:48 Discharge Date: September 18, 2017 Admitting Diagnosis fever,hx IVDA, hx acute bacterial endocarditis (1) Sepsis ICD Code: A41.9 - Sepsis, unspecified organism Status: Acute (2) UTI (urinary tract infection) ICD Code: N39.0 - Urinary tract infection, site not specified Status: Acute (3) History of intravenous drug abuse ICD Code: Z87.898 - Personal history of other specified conditions Status: Chronic (4) History of acute bacterial endocarditis ICD Code: Z86.79 - Personal history of other diseases of the circulatory system Status: Acute (5) Cephalalgia ICD Code: R51 - Headache Status: Acute (6) Hypotension ICD Code: I95.9 - Hypotension, unspecified Procedures None Brief History - From Admission Ms. Houser is a 26-year-old female with a history of IV drug use and previous endocarditis who presents to the emergency department due to fever that started 3 days prior to this admission. She complains of mild shortness of breath, upper neck pain. She is able to move her head up and down and [id number]. She also reports a toothache on her lower right side. She has some swelling of her right jaw but that resolved. Patient reported that she has been clean for 10 months. No history of valve replacement. She denies any chest pain, shortness of breath. Denies nausea or vomiting or diarrhea. No changes in bowel or bladder habits. Echocardiogram as well as LADI from April 2015 showed no vegetation. CBC/BMP: 09/16/17 1408 09/16/17 1408 Significant Findings Laboratory Tests Test 09/16/17 14:08 09/17/17 14:08 09/17/17 21:26 Monocytes (%) (Auto) 9.6 % (0.0-8.0) Albumin 3.0 GM/DL (3.4-5.0) Aspartate Amino Transf (AST/SGOT) 9 U/L (15-37) Estimat Glomerular Filtration Rate 79 ML/MIN (>89) Erythrocyte Sedimentation Rate 59 mm/hr (0-20) PE at Discharge GENERAL: This is a well-nourished, well-developed patient, NAD. CARDIOVASCULAR: Regular rate and rhythm without murmurs, gallops, or rubs. RESPIRATORY: Clear to auscultation. Breath sounds equal bilaterally. No wheezes , rales, or rhonchi. GASTROINTESTINAL: Abdomen soft, non-tender, nondistended. Normal active bowel sounds MUSCULOSKELETAL: Extremities without clubbing, cyanosis, or edema. NEURO: Alert & Oriented x4 to person, place, time, situation. Moves all ext x4 , no focal deficits. Pt update on day of discharge No neurologic deficits, patient is walking, no dizziness or lightheadedness. Still with mild headache, about 1-2/10. Does not want a blood patch. Hospital Course This is a 26-year-old female presenting with headache. Headache thought to be secondary to migraine headaches, infectious source ruled out. Lumbar puncture was done, CSF studies are negative and unremarkable. Patient was also found to have sepsis secondary to urinary tract infection, blood cultures remain negative , urine culture grew E. coli sensitive to Macrobid. Patient was initially started on ceftriaxone switch to Ceftin and will be discharged on Macrobid. Since patient has a history of IV drug abuse and bacterial endocarditis, echocardiogram was done and was unremarkable. Neurology saw the patient, it was thought that the patient's headache may be secondary to post lumbar puncture headache. Blood patch was ordered but patient refused. Patient was restarted her Topamax and was discharged on Imitrex and fioricet prn to follow- up with primary care physician as outpatient. Patient's blood pressure was also fluctuating, initially orthostatics are positive, upon discharge, orthostatics were negative. MRI of the brain was unremarkable, MRI of the neck and soft tissue of the face were unremarkable. This was further reviewed with the radiologist Dr. Rowley, he commented that there is some dental inflammation on the right mandibular area but no abscess. Patient will be discharged on clindamycin and follow-up with a dentist as outpatient. This was discussed with the patient. Pt Condition on Discharge: Good Discharge Disposition: Discharge Home Discharge Time: > 30 minutes Discharge Instructions DIET: Follow Instructions for: As Tolerated, No Restrictions Activities you can perform: Regular-No Restrictions Follow up Referrals: PCP Follow-up - 1 Week New Medications: Clindamycin (Clindamycin) 300 Mg Cap 300 MG PO TID for Infection for 7 Days, #21 CAP 0 Refills Nitrofurantoin Monohydrate Macrocrystals (Macrobid) 100 Mg Cap 100 MG PO BID for Infection, #8 CAP 0 Refills Sumatriptan (Imitrex) 25 Mg Tab 25 MG PO ONCE PRN for MIGRAINE HEADACHE, #5 TAB 0 Refills If a satisfactory response has not been obtained at 2 hours, a second dose may be administered Topiramate (Topamax) 25 Mg Tab 50 MG PO Q12HR for migraines, #60 TAB [Harv-Uqeau-Sylf 325-50-40 Mg] () 1 TAB TAB 1 TAB PO Q6H PRN for HEADACHE, #30 TAB Continued Medications: Escitalopram (Lexapro) 20 Mg Tab 40 MG PO DAILY, #30 TAB 0 Refills Lamotrigine (Lamictal) 25 Mg Tab 25 MG PO BID for Control Seizures, #60 TAB 0 Refills Trazodone (Trazodone) 150 Mg Tablet 150 MG PO HS for Control Depression, #30 TAB 0 Refills Kojo Mercado MD September 18, 2017 11:00
[2017-09-18 11:08] VITALS: BP_SYST 104; BP_SYST 106; BP_SYST 112; BP_DIAS 61; BP_DIAS 68; BP_DIAS 75; PULSE 66
[2017-09-18] MEDS: SUMAtriptan INJ 6 MG/0.5 ML VIAL SQ PRN (12:24)
== END 2017-09-18 13:29 | disposition home or self-care (01) | DRG 872 ==
LOC: NEPC 16:15 → NEDA 18:48 → N05A 21:20
PROVIDERS: ADMIT Hospitalist; ATTEND Hospitalist
PROC: 009U3ZX Drainage of Spinal Canal, Percutaneous Approach, Diagnostic (ICD-10-PCS; principal; 2017-09-13)
DX: A41.9 Sepsis, unspecified organism (principal); I95.9 Hypotension, unspecified; N39.0 Urinary tract infection, site not specified; K08.89 Other specified disorders of teeth and supporting structures; R51 Headache; B96.20 Unspecified Escherichia coli [E. coli] as the cause of diseases classified elsewhere; Z87.898 Personal history of other specified conditions; Z86.79 Personal history of other diseases of the circulatory system
CPT/HCPCS: 62270; 70450; 70543; 70553; 71045; 76937; 77003; 80048; 80053; 80202; 81001; 82945; 83605; 84157; 84702; 84703; 85025; 85610; 85652; 85730; 87040; 87070; 87077; 87086; 87102; 87186; 87205; 87206; 89051; 93308; 99285; A9579; J0696; J3030; J3370; J7030; J7040; J7050